=== PATIENT | male | born 1980 | race African-American/Black ===

== ENCOUNTER 2016-10-17 10:51 | Inpatient (IN) ==
[2016-10-17] MEDS ORDERED: NS 1,000 ML IV ONE (11:15)
[2016-10-17] MEDS ORDERED: ZOFRAN IV ONE ×2 (11:16→15:05)
[2016-10-17 11:34] LABS: MANUAL DIFF NEEDED? NO
[2016-10-17 11:38] LABS: BASO% 0.2 % (0.0-0.8); EOS# 0.06 X1000 (0.0-0.7); EOS% 0.4 % (0.0-10.0); HEMATOCRIT 43.1 % (42.0-52.0); HEMOGLOBIN 14.8 g/dL (14.0-18.0); IMM GRAN# 0.04 X1000 (0.0-0.04); IMM GRAN% 0.3 % (0.0-0.5); LYMPH# 1.55 X1000 (1.2-3.4); LYMPH% 11.2 % (20.5-51.1); MCHC 34.3 g/dL (33-37); MCV 78.6 FL (81-99); MONO# 0.62 X1000 (0.11-0.59); MONO% 4.5 % (1.7-9.3); MPV 10.6 FL (7.4-10.4); NEUT% 83.4 % (42.2-75.2); PLT 352 X1000 (130-400); RBC 5.48 XMIL (4.7-6.1)
[2016-10-17] MEDS ORDERED: DILAUDID IV ONE (11:41)
[2016-10-17 12:14] LABS: AGAP 20; ALBUMIN 4.3 g/dL (3.5-5.0); ALKALINE PHOSPHATASE 101 U/L (32-122); AMYLASE 99 U/L (20-200); BUN 15 mg/dL (8-22); CALCIUM 10.3 mg/dL (8.8-10.2); CHLORIDE 90 mmol/L (98-107); COSMO 296; GOT 11 U/L (10-34); GPT 10 U/L (10-44); POTASSIUM 4.1 mmol/L (3.5-5.1); SODIUM 135 mmol/L (136-145); TCO2 25 mmol/L (25-35); TOTAL BILIRUBIN 0.22 mg/dL (0.20-1.00); TOTAL PROTEIN 8.4 g/dL (6.3-8.3)
[2016-10-17] MEDS ORDERED: HUMULIN R IV ONE (12:30)
[2016-10-17] MEDS ORDERED: HUMULIN R SUBQ ONE (12:32)
[2016-10-17] MEDS ORDERED: NS 1,000 ML IV SCH (13:29)
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
[2016-10-17 13:51] LABS: URINE CULTURE NEEDED? NO; URINE MICRO REVIEW NEEDED? NO; URINE SOURCE CLEAN CATCH
[2016-10-17 13:56] LABS: BILIRUBIN URINE NEGATIVE (NEGATIVE); BLOOD URINE SMALL (NEGATIVE); COLOR STRAW; GLUCOSE URINE >1000 mg/dL (NEGATIVE); LEUKOCYTES URINE NEGATIVE (NEGATIVE); NITRITE URINE NEGATIVE (NEGATIVE); PH URINE 5.5; PROTEIN URINE 70 mg/dL (NEGATIVE); SP GRAVITY URINE 1.034; TURBIDITY URINE CLEAR (CLEAR); UR EPITHELIAL CELLS <10 /HPF (<10); URINE BACTERIA NEGATIVE /HPF; URINE RBC <10 /HPF (<10); URINE WBC <10 /HPF (<10); UROBILINOGEN URINE NORMAL (NORMAL)
[2016-10-17 14:15] LABS: UR AMPHETAMINES QUAL NONE DETECTED (NONE DETECT); UR BARBITUATES QUAL NONE DETECTED (NONE DETECT); UR BENZODIAZEPIN QUAL NONE DETECTED (NONE DETECT); UR CANNABINOIDS QUAL PRESUMPTIVE POSITIVE (NONE DETECT); UR COCAINE QUAL PRESUMPTIVE POSITIVE (NONE DETECT); UR METHADONE QUAL NONE DETECTED (NONE DETECT); UR OPIATES QUAL NONE DETECTED (NONE DETECT); UR OXYCODONE QUAL NONE DETECTED (NONE DETECT); UR PCP QUAL NONE DETECTED (NONE DETECT)
--- NOTE | 2016-10-17 14:29 | Diag Imaging Result Document ---
PROCEDURE NAME: CT ABD/PELVIS W/ IV CONT ONLY - 10/17/2016 CT ABDOMEN AND PELVIS WITH IV CONTRAST ONLY: Exam performed with intravenous contrast only per request of the referring provider. A dose reduction protocol was used. COMPARISON: Compared with the without contrast exam of 07/21/2016. FINDINGS: There has been interval appendectomy. The stomach is distended with fluid and air. There is dilatation of multiple small-bowel loops with fluid and air. The distal ileum is not distended. These findings are compatible with mid small bowel obstruction. There is questionable twisting of small bowel at the lower abdomen at the midline and to the left of midline which could relate to internal hernia or mild volvulus, but the mesenteric vascular structures are not obviously twisted. There is no abscess identified. There is no free intraperitoneal air identified. There is no bowel-containing external hernia identified. The urinary bladder is mildly distended. There is no substantial free fluid identified. There are no substantial abnormalities of the liver, spleen, adrenal glands, pancreas, or kidneys identified. There are no calcified gallstones seen. IMPRESSION: 1. Findings are consistent with mid small-bowel obstruction. Questionable twisting of some small bowel loops at the mid to lower abdomen and at the midline and to the left of midline. This could relate to internal hernia or mesenteric volvulus, although this is difficult to determine with certainty. 2. No abscess. No free air. Verbal results provided to Dr. Giles at 1:35 p.m. on 10/17/2016. [facility]
[2016-10-17 14:48] LABS: INR 0.95; PROTIME 9.9 Seconds (9.2-11.7)
[2016-10-17] MEDS ORDERED: APRESOLINE IV PRN (14:48)
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
[2016-10-17] MEDS: PROTONIX IV SCH (15:20)
[2016-10-17 15:40] LABS: HEMOGLOBIN A1C 13.3 % (4.8-6.0)
--- NOTE | 2016-10-17 15:53 | Diag Imaging Result Document ---
PROCEDURE NAME: CHEST/ABD TUBE PLACEMENT - 10/17/2016 CHEST/ABDOMEN SINGLE VIEW: FINDINGS: A nasogastric tube has been placed. The tip lies near the GE junction. It does not clearly enter the stomach. No free air beneath the diaphragm. IMPRESSION: Nasogastric tube is at the GE junction.
[2016-10-17] MEDS: HUMALOG SUBQ SCH ×2 (16:13→23:37)
--- NOTE | 2016-10-17 17:57 | Diag Imaging Result Document ---
PROCEDURE NAME: CHEST/ABD TUBE PLACEMENT - 10/17/2016 PORTABLE EXAM FOR NASOGASTRIC TUBE PLACEMENT: 1715 hours. The tip of the nasogastric tube is now at the expected location in the midstomach. IMPRESSION: Tip of nasogastric tube in midstomach. Verbal results provided to nurse, Trevor, at 5:29 p.m. on 10/17/2016.
[2016-10-17] MEDS: MORPHINE IV PRN ×2 (18:21→23:29)
[2016-10-17] MEDS: NS 1,000 ML IV SCH ×2 (18:23→21:14)
[2016-10-17] MEDS: NICODERM PATCH TD SCH (18:25)
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
[2016-10-17] MEDS: ZOFRAN IV PRN (21:14)
[2016-10-18] MEDS: ZOFRAN IV PRN ×2 (04:39→17:42)
[2016-10-18] MEDS: MORPHINE IV PRN ×4 (04:39→23:57)
[2016-10-18] MEDS: HUMALOG SUBQ SCH ×4 (06:00→20:58)
[2016-10-18 06:30] LABS: HEMATOCRIT 41.2 % (42.0-52.0); HEMOGLOBIN 14.1 g/dL (14.0-18.0); MCH 27.5 PG (27-31); MCHC 34.2 g/dL (33-37); MCV 80.3 FL (81-99); MPV 10.2 FL (7.4-10.4); RBC 5.13 XMIL (4.7-6.1)
[2016-10-18 06:57] LABS: CALCIUM 9.9 mg/dL (8.8-10.2); POTASSIUM 4.4 mmol/L (3.5-5.1)
[2016-10-18] MEDS: NS 1,000 ML IV SCH ×3 (08:08→17:46)
[2016-10-18] MEDS: NICODERM PATCH TD SCH (09:41)
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
--- NOTE | 2016-10-18 13:20 | ECHO REPORT ---
ORDER DATE: 10/18/2016 MEASUREMENTS: Left ventricular end-diastolic diameter 4.1, end-systolic diameter 3.3, posterior wall 1.4, septal thickness 1.4, left atrium 3.0, aortic root 4.4. SUMMARY: 1. Fair quality study. 2. Aortic valve is trileaflet and opens normally on 2-dimensional images. Mitral, tricuspid, and pulmonic valves are without structural abnormality, with trace mitral regurgitation, trace tricuspid regurgitation, and trace pulmonic insufficiency. The aortic root is mildly enlarged. 3. Normal left ventricular chamber size with [id number] concentric left ventricular hypertrophy is demonstrated. Estimated left ventricular ejection fraction is approximately 50%. No focal wall motion abnormalities are evident. Doppler suggests grade 1 left ventricular diastolic dysfunction. Left atrium, right atrium, and right ventricle are normal in size, with normal right ventricular systolic function. 4. No pericardial effusion. 5. Appearance of inferior vena cava suggests normal central venous pressure. CONCLUSIONS: 1. No significant valvular abnormalities. 2. [id number] concentric left ventricular hypertrophy with estimated left ventricular ejection fraction of 50%. 3. Grade 1 left ventricular diastolic dysfunction suggested. 4. Mild aortic root enlargement. cc: MD Dylan Gonsalez CRNP
[2016-10-18] MEDS: SODIUM CHLORIDE 0.9% INJ SCH (14:03)
[2016-10-18] MEDS: PROTONIX IV SCH (14:03)
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
[2016-10-19] MEDS: NS 1,000 ML IV SCH ×3 (02:31→16:51)
[2016-10-19 06:34] LABS: HEMATOCRIT 34.3 % (42.0-52.0); HEMOGLOBIN 11.6 g/dL (14.0-18.0); MCH 27.6 PG (27-31); MCHC 33.8 g/dL (33-37); MCV 81.5 FL (81-99); MPV 10.2 FL (7.4-10.4); RBC 4.21 XMIL (4.7-6.1)
[2016-10-19] MEDS: HUMALOG SUBQ SCH ×3 (06:50→16:50)
[2016-10-19] MEDS: MORPHINE IV PRN ×2 (06:50→10:09)
[2016-10-19 07:04] LABS: AGAP 11; BUN 17 mg/dL (8-22); CALCIUM 8.8 mg/dL (8.8-10.2); CHLORIDE 102 mmol/L (98-107); COSMO 289; POTASSIUM 4.1 mmol/L (3.5-5.1); SODIUM 139 mmol/L (136-145); TCO2 26 mmol/L (25-35)
--- NOTE | 2016-10-19 08:38 | PROGRESS NOTE ---
DATE: 10/19/2016 SUBJECTIVE: Continues to pass gas. No abdominal pain. No nausea, vomiting. OBJECTIVE: Vital Signs: Temperature is 98.1, pulse 95, blood pressure 142/86, oxygen saturation 100% on room air. General: He is alert, oriented. Cardiovascular: Normal rate, regular rhythm. Pulmonary: No increased work of breathing. Abdomen: Soft, nontender, nondistended. Integument: Otherwise warm and dry, with no lower extremity edema. LABS: White count of 8, hematocrit 34. Creatinine is down to 1.4. Glucose 271. ASSESSMENT AND PLAN: A 36-year-old male admitted with a bowel obstruction and hyperglycemia. His blood sugars are better. His creatinine bumped yesterday, but was downtrending today. He has had return of bowel function. Will advance his diet. He is tolerating clear liquids. Give him a soft diet today. If okay from a medical standpoint, okay for discharge home later today or tomorrow. We will defer to the hospitalist regarding his diabetes and his acute renal injury, which was most likely related to dehydration in the setting of hyperglycemia and protracted vomiting. cc: Laura Mcknight MD
[2016-10-19] MEDS ORDERED: LANTUS SUBQ SCH (09:00)
[2016-10-19] MEDS: NICODERM PATCH TD SCH (09:58)
[2016-10-19] MEDS: PROTONIX IV SCH (14:17)
[2016-10-19] MEDS: SODIUM CHLORIDE 0.9% INJ SCH (14:17)
--- NOTE | 2016-10-19 15:52 | PROGRESS NOTE ---
DATE: 10/19/2016 SUBJECTIVE: This patient states that he is feeling better. When I examined this patient, the patient did not have any bowel movement today. He is tolerating p.o. and apparently he is passing gas. His abdomen is soft, no pain and positive bowel sounds. OBJECTIVE: Vital Signs: Temperature 98.2 degrees, pulse 96, respiratory rate 18, blood pressure 152/80, O2 saturation 100% on room air. HEENT: Head normocephalic. No trauma. PERRLA. Neck: Supple. No JVD. No masses. Central trachea. Chest: Clear to auscultation. No wheezing. No rales. Abdomen: Soft, nontender, nondistended. No hepatosplenomegaly. Positive bowel sounds. Extremities: No edema. No clubbing. No cyanosis. Neurological Examination: The patient is alert and oriented x3. No focal neurological deficits. LABORATORY: WBC 8.7, hemoglobin 11.6, hematocrit 34.3. Sodium 139, potassium 4.1, chloride 102, bicarbonate 26, BUN 17, creatinine 1.4, glucose 271, calcium 8.8, magnesium 1.9. ASSESSMENT AND PLAN: 1. Small bowel obstruction. This condition is getting better. The patient is tolerating p.o. He is passing gas and yesterday he had a bowel movement that was watery. So far, no bowel movements today but the abdomen is soft with positive bowel sounds and no pain. 2. Uncontrolled diabetes. His hemoglobin A1c is 13.3, I do not think he is taking any medication at home. I will start this patient on insulin, and probably I will discharge this patient on insulin and metformin as well. 3. Dehydration likely secondary to hyperglycemia and fluids. Fluids removed from his NG tube. The creatinine came back to his baseline. We will continue to monitor. He does not look dehydrated today. 4. Acute kidney injury. Resolved. 5. History of asthma currently not in exacerbation. 6. Polysubstance abuse with medical noncompliance. Patient has been highly advised against drug abuse. He has a positive result for cocaine and cannabinoids in the urine. We will continue with daily cessation education. 7. Nicotine dependence. Again this patient has been highly advised to quit smoking. We will continue with nicotine patch and daily cessation education. 8. DVT prophylaxis provided by SCDs and EJ ellington. 9. Anemia. His hemoglobin dropped from 14.1 to 11.6. This could represent a mistake or true anemia. I will monitor this patient for 1 more day. 10. I will keep this patient for 1 more night. His hemoglobin dropped from 14 to 11.6, and also his blood sugar has been above 200. This patient will need upon discharge to be on insulin. I do not think this patient is taking his medications as prescribed. His hemoglobin A1c was 13.3. cc: Lucho Duggan MD
[2016-10-19 16:05] VITALS: BP 154/91
[2016-10-19] MEDS ORDERED: HUMULIN 70/30 SUBQ SCH (21:00)
[2016-10-20] MEDS ORDERED: HUMULIN 70/30 SUBQ SCH (09:00)
--- NOTE | 2016-10-20 11:39 | DISCHARGE SUMMARY ---
ADMISSION DATE: 10/17/2016 DISCHARGE DATE: 10/19/2016 THE PATIENT LEFT AMA ON 10/19/2016: CONSULTATIONS: Dr. Montana Mcknight. PERTINENT PROCEDURES: Abdomen and pelvis CT. FINDINGS: 1. Consistent with a mid small-bowel obstruction, questionable twisting of the small bowel loops at the mid to lower abdomen at the midline and to the left of midline. Could also relate to internal hernia or mesenteric volvulus. No abscess, no free air. 2. Echocardiogram showed [id number] concentric LVH with estimated EF of 50%. Grade 1 ventricular diastolic dysfunction. Mild aortic root enlargement. DISCHARGE DIAGNOSES: 1. Small bowel obstruction. The patient's condition was getting better. He was tolerating p.o. He had passed some gas and had a bowel movement that was watery. 2. Uncontrolled diabetes. Hemoglobin A1c was 13.3. The patient was started on insulin while in the hospital. 3. Acute kidney injury, resolved. 4. Dehydration secondary to hyperglycemia. 5. History of asthma non exacerbation. 6. Polysubstance abuse with medical noncompliance. 7. Nicotine dependence. Cessation was discussed daily. 8. Anemia stable. 9. Left against medical advice. HOSPITAL COURSE: Mr. Suarez is a 36-year-old male with a history of uncontrolled diabetes, medical noncompliance. Reported to the ED with acute onset of abdominal pain. It was fairly sharp in nature, all bilateral lower quadrant abdominal pain. One episode of emesis. He had a normal bowel movement on the day of his admission, but his belly had gotten fairly distended. He did report some shortness of breath and orthopnea and reports he has an enlarged heart. A CT of the abdomen and pelvis was ordered and found to be consistent with a bowel obstruction. Dr. Montana Mcknight with surgery had been consulted. His laboratory data was significant for hyperglycemia and mild renal insufficiency with leukocytosis. The patient was made NPO, started on IV fluids and antiemetics, as well as NG tube placement with serial abdominal x-rays. The patient was started on IV insulin and then switched to a sliding scale. Repeat echocardiogram showed an EF of 50% with LVH. The patient was monitored closely by general surgery. His blood sugars did improve. His creatinine did improve. His diet was advanced by surgery. He had been tolerating his liquids. The patient did have return of bowel function. However, patient did have a drop in his hemoglobin and hematocrit from 14-11 and his blood sugars were noted to have been above 200. Surgery was okay with the patient to be discharged home. However, we will need to monitor the patient one more night. The patient left AMA. Dictated by RASHID Keyes for Lucho Duggan MD cc: Lucho Duggan MD
== END 2016-10-19 18:34 | disposition left against medical advice (07) ==
LOC: ED 10:51 → 4N 16:14
PROVIDERS: ATTEND Internal Medicine

== ENCOUNTER 2016-10-23 23:20 | Inpatient (IN) ==
[2016-10-24] MEDS ORDERED: NS 1,000 ML IV SCH ×2 (01:51→05:58)
[2016-10-24 03:01] LABS: MANUAL DIFF NEEDED? NO
[2016-10-24 03:02] LABS: BASO% 0.3 % (0.0-0.8); EOS# 0.15 X1000 (0.0-0.7); EOS% 2.2 % (0.0-10.0); HEMATOCRIT 36.4 % (42.0-52.0); HEMOGLOBIN 12.9 g/dL (14.0-18.0); LYMPH# 1.58 X1000 (1.2-3.4); LYMPH% 22.7 % (20.5-51.1); MCH 27.8 PG (27-31); MCHC 35.4 g/dL (33-37); MCV 78.4 FL (81-99); MONO# 0.51 X1000 (0.11-0.59); MONO% 7.3 % (1.7-9.3); MPV 10.1 FL (7.4-10.4); NEUT% 67.5 % (42.2-75.2); PLT 324 X1000 (130-400); RBC 4.64 XMIL (4.7-6.1)
[2016-10-24 03:33] LABS: ALBUMIN 3.8 g/dL (3.5-5.0); CALCIUM 9.9 mg/dL (8.8-10.2); POTASSIUM 4.2 mmol/L (3.5-5.1); TOTAL BILIRUBIN 0.19 mg/dL (0.20-1.00); TOTAL PROTEIN 7.6 g/dL (6.3-8.3)
[2016-10-24] MEDS ORDERED: NS 1,000 ML IV ONE (03:48)
[2016-10-24] MEDS ORDERED: HUMULIN R IV ONE (03:50)
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
[2016-10-24 04:26] LABS: URINE SOURCE CLEAN CATCH
[2016-10-24 04:27] LABS: URINE MICRO REVIEW NEEDED? NO
[2016-10-24 04:28] LABS: BILIRUBIN URINE NEGATIVE (NEGATIVE); BLOOD URINE SMALL (NEGATIVE); COLOR STRAW; GLUCOSE URINE >1000 mg/dL (NEGATIVE); LEUKOCYTES URINE NEGATIVE (NEGATIVE); NITRITE URINE NEGATIVE (NEGATIVE); PH URINE 5.5; PROTEIN URINE 50 mg/dL (NEGATIVE); SP GRAVITY URINE 1.019; TURBIDITY URINE CLEAR (CLEAR); UROBILINOGEN URINE NORMAL (NORMAL)
[2016-10-24 04:29] LABS: UR EPITHELIAL CELLS <10 /HPF (<10); URINE BACTERIA NEGATIVE /HPF; URINE RBC <10 /HPF (<10); URINE WBC <10 /HPF (<10)
[2016-10-24 05:00] LABS: UR AMPHETAMINES QUAL NONE DETECTED (NONE DETECT); UR BARBITUATES QUAL NONE DETECTED (NONE DETECT); UR BENZODIAZEPIN QUAL NONE DETECTED (NONE DETECT); UR CANNABINOIDS QUAL PRESUMPTIVE POSITIVE (NONE DETECT); UR COCAINE QUAL NONE DETECTED (NONE DETECT); UR METHADONE QUAL NONE DETECTED (NONE DETECT); UR OPIATES QUAL NONE DETECTED (NONE DETECT); UR OXYCODONE QUAL NONE DETECTED (NONE DETECT); UR PCP QUAL NONE DETECTED (NONE DETECT)
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
[2016-10-24 05:58] LABS: RETIC% 0.71 % (0.8-2.1); RETIC-HE 31.7 PG (28.2-36.6)
[2016-10-24] MEDS ORDERED: TYLENOL PO PRN (05:58)
[2016-10-24] MEDS ORDERED: HUMALOG SUBQ SCH (05:58)
[2016-10-24] MEDS ORDERED: SODIUM CHLORIDE 0.9% INJ ONE (05:58)
[2016-10-24] MEDS ORDERED: PROTONIX IV ONE (05:58)
[2016-10-24] MEDS ORDERED: ZOFRAN IV PRN (05:58)
[2016-10-24] MEDS: LOVENOX SUBQ SCH (07:26)
[2016-10-24] MEDS: HUMALOG SUBQ SCH ×4 (07:35→22:21)
--- NOTE | 2016-10-24 08:11 | Diag Imaging Result Document ---
PROCEDURE NAME: FLAT/UPRIGHT ABD/1 VIEW CHEST - 10/24/2016 PLAIN RADIOGRAPH OF THE CHEST AND ABDOMEN, 4 VIEWS: COMPARISON: Abdominal radiograph dated 10/17/2016. FINDINGS: There are nonspecific bowel gas patterns. There is mild gaseous distention of the colon with a few air-fluid levels. There also appears to be a small amount of nonspecific patchy gas in the small bowel. There does appear to be somewhat less small bowel distention when compared to the previous study. There is no evidence of large-volume free abdominal gas. Lungs are clear and cardiac silhouette is unremarkable. IMPRESSION: Less small bowel distention as compared to the previous study. However, the colon is now mildly distended which was not present previously.
[2016-10-24] MEDS ORDERED: LANTUS SUBQ SCH (09:00)
--- NOTE | 2016-10-24 09:41 | Diag Imaging Result Document ---
PROCEDURE NAME: ABDOMEN/PELVIS W/O CONTRAST - 10/24/2016 CT ABDOMEN AND PELVIS WITH ORAL CONTRAST ONLY: COMPARISON: 10/17/2016. FINDINGS: There is nodularity in the peripheral lower lobe of the left lung that is stable and nonspecific, perhaps related to granulomatous disease. Please correlate clinically and follow up as necessary. The small-bowel obstruction seen on the previous study has essentially resolved. There is still patchy small-bowel gas and a few air-fluid levels. However, there is very little distention. There is patchy gas in the colon. It does not appear to be significantly distended. There is still some swirling of the mesenteric vessels similar to that which was seen on the previous study. Otherwise, the abdomen and pelvis are essentially stable as compared to the recent previous study. IMPRESSION: 1. Essential resolution of the small-bowel obstruction seen previously. 2. Although there is patchy colonic gas, there is no evidence of colonic obstruction. 3. Otherwise, the abdomen and pelvis are essentially stable as compared to the recent previous study.
[2016-10-24] MEDS: NS 1,000 ML IV SCH (16:27)
[2016-10-24] MEDS: MORPHINE IV PRN (22:29)
[2016-10-25] MEDS ORDERED: NICODERM PATCH TD SCH (00:30)
[2016-10-25] MEDS: HUMALOG SUBQ SCH ×2 (06:07→11:23)
[2016-10-25] MEDS: NS 1,000 ML IV SCH ×2 (06:08→11:33)
[2016-10-25 06:12] LABS: MANUAL DIFF NEEDED? NO
[2016-10-25 06:20] LABS: BASO% 0.5 % (0.0-0.8); HEMATOCRIT 33.7 % (42.0-52.0); HEMOGLOBIN 11.5 g/dL (14.0-18.0); LYMPH# 2.05 X1000 (1.2-3.4); LYMPH% 31.2 % (20.5-51.1); MCH 27.1 PG (27-31); MCHC 34.1 g/dL (33-37); MCV 79.5 FL (81-99); MONO# 0.45 X1000 (0.11-0.59); MONO% 6.8 % (1.7-9.3); MPV 9.8 FL (7.4-10.4); NEUT% 58.5 % (42.2-75.2); PLT 275 X1000 (130-400); RBC 4.24 XMIL (4.7-6.1)
[2016-10-25 06:30] LABS: AGAP 9; ALBUMIN 3.3 g/dL (3.5-5.0); ALKALINE PHOSPHATASE 73 U/L (32-122); BUN 13 mg/dL (8-22); CALCIUM 8.8 mg/dL (8.8-10.2); CHLORIDE 100 mmol/L (98-107); COSMO 284; GOT 10 U/L (10-34); GPT 10 U/L (10-44); POTASSIUM 4.1 mmol/L (3.5-5.1); SODIUM 137 mmol/L (136-145); TCO2 28 mmol/L (25-35); TOTAL BILIRUBIN 0.11 mg/dL (0.20-1.00); TOTAL PROTEIN 6.9 g/dL (6.3-8.3)
[2016-10-25 08:16] VITALS: BP 157/97
--- NOTE | 2016-10-25 08:39 | Diag Imaging Result Document ---
PROCEDURE NAME: ABDOMEN FLAT/UPRIGHT - 10/25/2016 FLAT AND UPRIGHT ABDOMEN, THREE VIEWS: FINDINGS: No free air beneath the diaphragm. There is contrast and stool throughout the colon. The bowel loops are not distended. No organomegaly. No abnormal calcifications. IMPRESSION: Constipation, but no definite small bowel obstruction.
[2016-10-25] MEDS: LOVENOX SUBQ SCH (09:16)
[2016-10-25] MEDS: MORPHINE IV PRN ×2 (09:17→13:36)
--- NOTE | 2016-10-26 08:44 | DISCHARGE SUMMARY ---
ADMISSION DATE: 10/24/2016 DISCHARGE DATE: 10/25/2016 CONSULTATIONS: None. PERTINENT PROCEDURES: 1. Abdominal x-ray showed less small bowel distension compared to previous study. However, the colon is mildly distended. 2. Abdomen and pelvis CT: Essential resolution of small bowel obstruction seen previously. Although there is patchy colonic gas, there is no evidence of colonic obstruction. Abdomen and pelvis are essentially stable compared to recent previous study. 3. Abdominal x-ray showed constipation but no definite small bowel obstruction. DISCHARGE DIAGNOSES: 1. Large bowel obstruction versus adynamic ileus ruled out. 2. Uncontrolled diabetes mellitus type 2. 3. Asthma. 4. Dehydration. HOSPITAL COURSE: Mr. Suarez is a 36-year-old male with a past medical history of poorly controlled diabetes type 2 with a hemoglobin A1c of 13.3, recently at our facility for a small bowel obstruction, signed out AMA prior to his discharge. He returned to the ED with a difficult time defecating for 3 days. He was given a blue tablet by a friend, presumably a laxative, to aid in his defecation, and he said about 30 minutes to an hour after taking this medicine he developed intense lower abdominal cramping pain and the desire to defecate. On going to the bathroom, he strained without any success and noticed his abdomen was a little distended. Shortly after, he vomited 4 times, no coffee-ground emesis, no hematemesis. Since the patient has been in the hospital, he defecated twice, large watery stools. In the ED, an x- ray showed distended colon and several air fluid levels were noted in the periphery of the film suggestive of a large bowel obstruction. White count was 6000. His hemoglobin and hematocrit were 12 and 36. Creatinine was 1.6. The blood glucose was 453. The patient had a followup abdomen and pelvis CT that showed essential resolution of the small bowel obstruction seen on previous studies. Although there was patchy colonic gas, there was no evidence of colonic obstruction. Otherwise, the abdomen and pelvis were essentially stable compared to recent previous studies. Followup KUB showed constipation but no definite bowel obstruction. Mr. Suarez is set for discharge today. He will need to follow up with a primary care physician in 7-10 days. The list has been provided to him. Vital signs at the time of his discharge: Temperature is 97.8, heart rate 86, respirations 20, blood pressure 157/97, O2 was 100% on room air. DISCHARGE DIET: Diabetic. DISCHARGE MEDICATIONS: As per Dr. Rooney, metformin 1000 mg p.o. b.i.d. FOLLOWUP: The patient can return to the ED for any worsening of symptoms. DISCHARGE TIME: Thirty five minutes. Dictated by RASHID Keyes for Son Ma MD cc: Son Ma MD MTDD
== END 2016-10-25 14:49 | disposition home or self-care (01) ==
LOC: ED 23:20 → SUATTDRO 10-24 04:37 → 3N 10-24 05:51
PROVIDERS: ATTEND Internal Medicine

== ENCOUNTER 2019-08-28 07:00 | Inpatient (IN) ==
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
--- NOTE | 2019-08-28 09:59 | Diag Imaging Result Doc PS360 ---
EXAM: FOOT COMPLETE RIGHT 08/28/2019 HISTORY: ?osteomyelitis, infection TECHNIQUE: Right foot three views COMMENT: There is no evidence of fracture or dislocation. No other definite bony abnormalities are present. IMPRESSION: No evidence of acute bony disease. Electronically signed by Maximilian White 08/28/2019 9:56 AM
[2019-08-28 10:05] LABS: BASO# 0.03 X1000 (0.0-0.2); BASO% 0.2 % (0.0-0.8); EOS# 0.14 X1000 (0.0-0.7); EOS% 1.1 % (0.0-10.0); HEMATOCRIT 25.8 % (42.0-52.0); HEMOGLOBIN 8.3 g/dL (14.0-18.0); IMM GRAN# 0.06 X1000 (0.0-0.04); IMM GRAN% 0.5 % (0.0-0.5); LYMPH# 1.13 X1000 (1.2-3.4); LYMPH% 8.7 % (20.5-51.1); MCH 25.8 PG (27-31); MCHC 32.2 g/dL (33-37); MCV 80.1 FL (81-99); MONO# 0.93 X1000 (0.11-0.59); MONO% 7.2 % (1.7-9.3); NEUT# 10.63 X1000 (1.4-6.5); NEUT% 82.3 % (42.2-75.2); PLT 610 X1000 (130-400); RBC 3.22 XMIL (4.7-6.1); RDW 12.5 % (11.5-14.5); WBC 12.92 X1000 (4.8-10.8)
[2019-08-28 10:42] LABS: CALCIUM 8.4 mg/dL (8.8-10.2); CREATININE 2.9 mg/dL (0.7-1.2); POTASSIUM 4.5 mmol/L (3.5-5.1)
[2019-08-28] MEDS ORDERED: ZOSYN 3.375 GM in NS 50 ML IV ONE (11:12)
[2019-08-28] MEDS ORDERED: ZYVOX 600 MG/D5W 600 MG/300 ML IVPB IV ONE (11:12)
[2019-08-28] MEDS ORDERED: NS 500 ML IV ONE (11:13)
[2019-08-28] MEDS: NS 1,000 ML IV SCH ×2 (11:15→17:54)
[2019-08-28 12:03] LABS: HEMOGLOBIN A1C 10.3 % (4.8-6.0)
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
[2019-08-28] MEDS ORDERED: APRESOLINE IV PRN (14:40)
[2019-08-28] MEDS ORDERED: PRINIVIL PO SCH (14:45)
[2019-08-28] MEDS ORDERED: NS 1,000 ML IV ONE (14:46)
[2019-08-28] MEDS ORDERED: LANTUS INSULIN SUBQ ONE (15:08)
--- NOTE | 2019-08-28 15:10 | SEPSIS: TISSUE PERFUSION ASSMT ---
Sepsis: Tissue Perfusion Assmt - Physical Exam Assessment Date: 08/28/19 Time Assessment Initialized: 15:00 Vital Signs: Last Vital Signs Temp 99 F 08/28/19 13:41 Pulse 99 H 08/28/19 13:41 Resp 14 08/28/19 13:41 BP 184/116 08/28/19 13:41 Pulse Ox 100 08/28/19 13:41 Height 6 ft Weight 92.986 kg Lung Sounds: lungs clear Heart Sounds: Regular Capillary Refill Time: Less Than 2 Seconds Peripheral Pulse Evaluation: radial (R): 2+, radial (L): 2+, dorsalis-pedis (R): 2+, dorsalis-pedis (L): 2+, posterior tibialis (R): 2+, posterior tibialis (L): 2+ Skin Exam: pink, turgor good - Alternative Fluid Bolus Bolus Option: Alternative Fluid Resuscitation Bolus for morbidly obese patients with a BMI >30, Refer to [facility] Body Weight Chart for Reference. Is patient's BMI >30?: No - Impression Impression: Tissue Perfusion Adequate (Patient is hypertensive. Additional IV fluid boluses have been avoided.)
[2019-08-28 15:15] LABS: IRON SATURATION 17 %; TIBC 134 ug/dL; TOTAL IRON 23 ug/dL (53-167); UNBOUND IRON 111 ug/dL (112-346)
[2019-08-28 15:36] LABS: FERRITIN 223 ng/mL (30-400)
--- NOTE | 2019-08-28 15:57 | Diag Imaging Result Doc PS360 ---
MRI LOWER EXT W/WO CON-RIGHT - 08/28/2019 INDICATION: Evaluate for right foot osteomyelitis TECHNIQUE: MRI right foot without and with intravenous contrast COMPARISON: X-rays from earlier today FINDINGS: There appears to be a small penetrating ulcer at the plantar surface of the forefoot, at the third metatarsal head. There is some bone marrow edema at the distal third and fourth metatarsals. There is also bone marrow contrast enhancement here. There is some overlying cellulitis. No fluid collections or apparent foreign body. IMPRESSION: Osteomyelitis of the distal third and fourth metatarsals, mainly the metatarsal heads. Electronically signed by Harry Crowley 08/28/2019 3:55 PM
[2019-08-28] MEDS: HEPARIN SUBQ SCH ×2 (16:24→21:42)
[2019-08-28] MEDS: HUMALOG SUBQ SCH ×2 (16:37→21:43)
[2019-08-28] MEDS ORDERED: NOVOLOG MIX 70/30 SUBQ SCH ×2 (17:00→21:00)
[2019-08-28] MEDS ORDERED: ZOSYN 3.375 GM in NS 50 ML IV SCH (17:00)
[2019-08-28] MEDS: TYLENOL PO PRN (17:49)
[2019-08-28] MEDS: ZOSYN 2.25 GM in NS 50 ML IV SCH (17:49)
--- NOTE | 2019-08-28 18:25 | HISTORY AND PHYSICAL ---
Addendum to history and physical dictated by the nurse practitioner. I agree with most comments of history and physical, assessment and plan. In brief, Mr. Suarez is a 39-year-old man with history of type 1 insulin-dependent diabetes mellitus, asthma, tobacco abuse, and substance abuse in the past, who comes in with excruciating pain in the right foot along with drainage. In the emergency room, he was found to have sepsis with tachycardia and leukocytosis. He was resuscitated with intravenous fluids, intravenous antibiotics, and hospitalist team was consulted for further management. SUBJECTIVE: At the time of my evaluation, Mr. Suarez states he has not had any money to buy insulin or see general surgeon as an outpatient. OBJECTIVE: Temperature of 99 degrees, pulse 99, respiratory 14, and blood pressure 180/116. He is saturating 100% on room air.General: He is not in acute distress. Oral cavity is moist. Lungs: Air entry bilaterally equal. No wheeze, rhonchi, or crackles. Cardiovascular: S1, S2 normal. No murmur or gallop. Abdomen: Soft. Midline scar of previous laparotomy. Active bowel sounds. Extremities: He does not have lower extremity edema. On the right lower extremity examination, there is a linear wound on the plantar aspect of the right foot. There is also about 2 cm diameter wound which is dried and has a slight foul odor to it, and has mucopurulent discharge in the plantar aspect and excruciatingly tender. LABORATORY: Labs are suggestive of WBC of 12.9, hemoglobin 8.3, platelets 610,000, BUN 26, and creatinine 2.9. Wound culture and blood culture have been collected. IMAGING: Foot x-ray was unremarkable. Lower extremity MRI had suggested osteomyelitis of distal 3rd and 4th metatarsal in the head. IMPRESSION AND PLAN: 1. Severe sepsis due to right foot acute osteomyelitis affecting distal 3rd and 4th metatarsal. 2. Acute kidney injury on possibly chronic kidney disease stage 3 in the setting of sepsis. 3. Uncontrolled insulin-dependent diabetes mellitus type 1. 4. Essential hypertension. 5. Active tobacco abuse. 6.Microcytic anemia, likely anemia of chronic kidney disease, and anemia of chronic inflammation. PLAN: 1. I will give patient additional intravenous fluids. We will start him on intravenous Zosyn and linezolid. I will follow up with blood culture and wound culture results. Follow up with close input and output as well as electrolytes. We will consult general surgical team for evaluation for surgical debridement of osteomyelitis. 3. I will continue him on insulin, and start him on basal bolus regimen. 4. Continue heparin for DVT prophylaxis. 5. Start him on IV hydralazine for hypertension. 6. Smoking counselling would be provided. DISPOSITION: Continue to monitor patient on telemetry unit. Plan of care discussed with the patient. His questions have been satisfactorily answered. cc: Fletcher Abdul MD MTDD
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
[2019-08-28 20:36] LABS: URINE SOURCE CLEAN CATCH
[2019-08-28 20:45] LABS: BILIRUBIN URINE NEGATIVE (NEGATIVE); BLOOD URINE MODERATE (NEGATIVE); COLOR YELLOW; GLUCOSE URINE 100 mg/dL (NEGATIVE); KETONE URINE NEGATIVE (NEGATIVE); LEUKOCYTES URINE NEGATIVE (NEGATIVE); NITRITE URINE NEGATIVE (NEGATIVE); PROTEIN URINE 300 mg/dL (NEGATIVE); SP GRAVITY URINE 1.013; TURBIDITY URINE CLEAR (CLEAR); UROBILINOGEN URINE NORMAL (NORMAL)
[2019-08-28 20:46] LABS: UR EPITHELIAL CELLS <10 /HPF (<10); URINE BACTERIA NEGATIVE /HPF; URINE RBC TNTC /HPF (<10); URINE WBC <10 /HPF (<10)
[2019-08-28] MEDS: ZYVOX 600 MG/D5W 600 MG/300 ML IVPB IV SCH (21:42)
[2019-08-29] MEDS: ZOSYN 2.25 GM in NS 50 ML IV SCH ×4 (00:24→17:12)
[2019-08-29] MEDS: NS 1,000 ML IV SCH ×2 (00:24→17:22)
[2019-08-29] MEDS: TYLENOL PO PRN (00:24)
[2019-08-29] MEDS: HEPARIN SUBQ SCH ×4 (02:55→23:42)
[2019-08-29] MEDS: ZYVOX 600 MG/D5W 600 MG/300 ML IVPB IV SCH ×3 (02:56→23:42)
[2019-08-29] MEDS ORDERED: FENTANYL ONE (05:59)
[2019-08-29] MEDS ORDERED: VERSED ONE (05:59)
[2019-08-29] MEDS ORDERED: DIPRIVAN 1% ONE (06:00)
[2019-08-29] MEDS: HUMALOG SUBQ SCH ×4 (06:46→21:34)
[2019-08-29 07:50] LABS: BASO# 0.02 X1000 (0.0-0.2); BASO% 0.2 % (0.0-0.8); EOS# 0.12 X1000 (0.0-0.7); HEMATOCRIT 24.1 % (42.0-52.0); HEMOGLOBIN 7.8 g/dL (14.0-18.0); IMM GRAN# 0.03 X1000 (0.0-0.04); IMM GRAN% 0.2 % (0.0-0.5); LYMPH# 1.81 X1000 (1.2-3.4); LYMPH% 14.4 % (20.5-51.1); MCH 25.8 PG (27-31); MCHC 32.4 g/dL (33-37); MCV 79.8 FL (81-99); MONO# 1.28 X1000 (0.11-0.59); MONO% 10.2 % (1.7-9.3); MPV 8.9 FL (7.4-10.4); NEUT# 9.33 X1000 (1.4-6.5); PLT 668 X1000 (130-400); RBC 3.02 XMIL (4.7-6.1); RDW 12.4 % (11.5-14.5); WBC 12.59 X1000 (4.8-10.8)
[2019-08-29] MEDS ORDERED: MORPHINE IV PRN (07:51)
[2019-08-29 08:16] LABS: CALCIUM 8.4 mg/dL (8.8-10.2); CREATININE 2.4 mg/dL (0.7-1.2); POTASSIUM 3.9 mmol/L (3.5-5.1)
[2019-08-29] MEDS ORDERED: NAROPIN 0.2% ONE (08:58)
[2019-08-29] MEDS ORDERED: LANTUS INSULIN SUBQ SCH (09:00)
--- NOTE | 2019-08-29 09:28 | Diag Imaging Result Doc PS360 ---
Right foot one view - 08/29/2019 INDICATION: MISS COUNT IN SURGERY TECHNIQUE: COMPARISON: 08/28/2019 FINDINGS: There is no radiodense foreign body. IMPRESSION: No complication. Electronically signed by Harry Crowley 08/29/2019 9:26 AM
--- NOTE | 2019-08-29 11:42 | OPERATIVE NOTE ---
PROCEDURE DATE: 08/29/2019 POSTOPERATIVE DIAGNOSES: 1. Right diabetic foot infection. 2. Osteomyelitis of the 3rd and 4th metatarsals on the right. 3. Diabetes. POSTOPERATIVE DIAGNOSES: 1. Right diabetic foot infection. 2. Osteomyelitis of the 3rd and 4th metatarsals on the right. 3. Diabetes. PROCEDURE: Transmetatarsal amputation of the right 4th toe. ESTIMATED BLOOD LOSS: Less than 10 mL. SPECIMENS: Right 4th toe. ANESTHESIA: General. INDICATION: A 39-year-old gentleman who has poorly controlled diabetes medical noncompliance due to social issues. He also is a smoker and suspect he has some subclinical peripheral vascular disease. He came in with early ischemic changes, purulence from his foot and leukocytosis and pain. MRI showed osteomyelitis changes of the metatarsal heads of the 3rd and 4th digit. OPERATIVE NOTE: Risks, benefits and alternatives were discussed with patient. He consented to the procedure. We also discussed the possibility of subsequent amputations, need for further intervention. He understands all this and consented. Surgical site was marked. He was taken to the operating room and placed in supine position. General anesthesia induced. The foot was prepped with Betadine and draped in the usual fashion. After a time-out, an elliptical incision was made including the plantar ulcer which overlies the 4th metatarsal head and carried this down through the joint space, removing the toe. Periosteum elevators used to resect the periosteum back on the metatarsal and a bone cutter was used. There was purulence in the joint and there was moth-eaten changes to the distal bone. There was very minimal bleeding noted. I did not appreciate any purulence tracking medially or laterally. We confirmed hemostasis. We lavaged the cavity with lavage and a lavage dressing was applied. The sponge counts were short 1 sponge, which was subsequently found in the hallway outside of the room, but an x-ray was obtained that showed no retained surgical instruments or sponges. There was no family available. We will keep him on antibiotics over the weekend, obtain noninvasive vascular studies and plan for possible CTA. Unfortunately, I expected he will progress to transmetatarsal amputation with possible revascularization required, but will see how he does with wound care and antibiotics. cc: Laura Mcknight MD
--- NOTE | 2019-08-29 16:42 | PROGRESS NOTE ---
DATE: 08/29/2019 INTERVAL HISTORY: Mr. Suarez underwent transmetatarsal amputation of right 4th toe. I am seeing him postoperatively. SUBJECTIVE: He is complaining of pain at the surgery site. He denies any chest pain or shortness of breath. He denies any nausea or vomiting. I briefly discussed with him about the surgical note that the surgeon doctor had written. We also talked about starting him on intravenous pain medication as well as diabetes control, and resolution of acute kidney injury. He understood it. VITALS: Temperature of 98.7 degrees, pulse 110, respiratory 18, blood pressure 130/70, saturating 99% on room air. PHYSICAL EXAMINATION: General: Not in acute distress. Oral cavity is moist. Lungs: Air entry bilaterally equal. No wheeze or crackles. Cardiovascular: S1, S2 normal. No murmur or gallop. Abdomen: Soft, nontender. Extremities: No lower extremity edema. His right lower extremity is in bandage. Right now he is able to wiggle his 1st two toes that I can see. [place] [address], hemoglobin 7.8, platelet 668,000. His BUN improved to 21, creatinine is down to 2.4. His blood sugar is 108. His ferritin is 223, had a saturation of 78% suggestive of anemia of chronic disease. Culture results are still pending. ASSESSMENT AND PLAN: 1. Severe sepsis due to right foot acute osteomyelitis affecting the 3rd and 4th metatarsals, status post transmetatarsal amputation of 4th toe. Continue intravenous fluids, intravenous linezolid and intravenous Zosyn. Follow up final culture and sensitivity report. Surgical team on board and further angiographic imaging is planned for next week. I will keep him on intravenous morphine for pain control and add oral acetaminophen oxycodone. 2. Acute kidney injury, probably on chronic kidney disease stage 3 in the setting of sepsis, now improving. Continue intravenous fluids. 3. Uncontrolled insulin-dependent diabetes mellitus type 1. Continue sliding scale insulin and adjust the dose according to his response. 4. Essential hypertension. Continue intravenous hydralazine as needed and I will add oral medications once he becomes clinically stable. 5. He was counseled about active tobacco abuse and he has microcytic anemia, likely anemia of chronic inflammation. DISPOSITION: I will continue to monitor patient inside the hospital. Plan of care discussed with him. His questions have been answered. cc: Fletcher Abdul MD
[2019-08-29] MEDS: TYLENOL PO SCH (17:11)
[2019-08-29] MEDS: OXY IR PO SCH ×2 (17:11→21:33)
[2019-08-29] MEDS: PERIDEX MT SCH (21:33)
[2019-08-30] MEDS: ZOSYN 2.25 GM in NS 50 ML IV SCH ×5 (01:39→22:38)
[2019-08-30] MEDS: TYLENOL PO SCH ×4 (01:39→23:55)
[2019-08-30] MEDS: MORPHINE IV PRN ×2 (01:39→20:49)
[2019-08-30] MEDS: OXY IR PO SCH ×4 (04:10→22:49)
[2019-08-30] MEDS: HUMALOG SUBQ SCH ×4 (06:34→22:37)
[2019-08-30] MEDS: HEPARIN SUBQ SCH ×3 (06:34→22:29)
[2019-08-30 07:05] LABS: BASO# 0.02 X1000 (0.0-0.2); BASO% 0.2 % (0.0-0.8); EOS% 0.9 % (0.0-10.0); HEMATOCRIT 24.8 % (42.0-52.0); IMM GRAN# 0.02 X1000 (0.0-0.04); IMM GRAN% 0.2 % (0.0-0.5); LYMPH# 1.26 X1000 (1.2-3.4); LYMPH% 11.7 % (20.5-51.1); MCH 25.9 PG (27-31); MCHC 32.3 g/dL (33-37); MCV 80.3 FL (81-99); MONO# 1.02 X1000 (0.11-0.59); MONO% 9.5 % (1.7-9.3); MPV 8.9 FL (7.4-10.4); NEUT# 8.34 X1000 (1.4-6.5); NEUT% 77.5 % (42.2-75.2); PLT 620 X1000 (130-400); RBC 3.09 XMIL (4.7-6.1); RDW 12.3 % (11.5-14.5); WBC 10.76 X1000 (4.8-10.8)
[2019-08-30 07:17] LABS: CALCIUM 8.3 mg/dL (8.8-10.2); CREATININE 2.7 mg/dL (0.7-1.2); MAGNESIUM 1.7 mg/dL (1.5-2.7); POTASSIUM 3.9 mmol/L (3.5-5.1)
[2019-08-30] MEDS: PERIDEX MT SCH ×2 (11:41→20:49)
--- NOTE | 2019-08-30 12:03 | GENERAL SURGERY PROGRESS NOTE ---
DATE: 08/30/2019 SUBJECTIVE: His foot hurts. Objective: Vital Signs: He is afebrile. Vital signs are stable. General: He is awake, alert, oriented, no acute distress. Extremities: The right foot bandage is intact. No bleeding through. LABORATORY: White cell count 10, hemoglobin 8, hematocrit 24.9, platelet count 620. Electrolytes reviewed and unremarkable. ASSESSMENT AND PLAN: A 39-year-old male status post right fourth toe amputation. He has a diabetic foot infection and osteomyelitis. Lower extremity arterial studies are pending. Continue local wound care and antibiotics. cc: Tevin Morris MD
[2019-08-30] MEDS: ZYVOX 600 MG/D5W 600 MG/300 ML IVPB IV SCH ×2 (13:16→22:29)
[2019-08-30] MEDS: NS 1,000 ML IV SCH ×2 (13:16→16:55)
--- NOTE | 2019-08-30 15:00 | PROGRESS NOTE ---
DATE: 08/30/2019 INTERVAL HISTORY: No acute events overnight. SUBJECTIVE: Mr. Suarez is complaining of foot pain. He denies any chest pain or shortness of breath. We discussed about his kidney dysfunction as well as possible diabetic nephropathy. I answered all of his questions. VITALS: Temperature 98.9 degrees, pulse 91, respiratory rate 20, blood pressure 155/83, saturating 96% on room air. PHYSICAL EXAMINATION: Not in acute distress. HEENT: Oral cavity is moist. Lungs: Air entry bilateral. No wheeze or crackles. Cardiovascular: No murmur or gallop. Abdomen: Soft, nontender. Scar of previous laparotomy. Extremities: No lower extremity edema. He has right lower extremity in bandage. He is able to wiggle his toes. Intact pulses on left lower extremity. Neurologic: He is alert and oriented x3. [place]S: [place] [address], hemoglobin 8, platelet of 620,000. His BUN is 21, creatinine 2.7. His blood glucose is 137. His magnesium is 1.7. No positive microbiological data. No new imaging. ASSESSMENT AND PLAN: 1. Severe sepsis due to right foot acute osteomyelitis affecting 3rd and 4th metatarsals, status post transmetatarsal amputation of 4th toe. Today is postoperative day 1. Continue intravenous linezolid and intravenous Zosyn. Continue oral acetaminophen, oxycodone and intravenous morphine for pain control. I will continue heparin for DVT prophylaxis. 2. Acute kidney injury, probably chronic kidney disease stage 3 in the setting of sepsis and could also be a component of postoperative acute kidney injury. I will continue intravenous fluids. Follow up kidney function closely. 3. Uncontrolled insulin-dependent diabetes mellitus type 2. Continue sliding scale insulin and diabetic diet. 4. Essential hypertension. Continue intravenous hydralazine as needed. Once his kidney function stabilizes, I will consider starting him on JOSEPHINE inhibitors considering proteinuria and history of diabetes. 5. Active tobacco abuse. He was counseled about smoking cessation; continue to monitor hemoglobin for anemia of chronic inflammation. DISPOSITION: Continue to monitor patient inside the hospital. General surgical team is planning further imaging early next week. Plan of care discussed with the patient and his questions have been answered. cc: Fletcher Abdul MD
[2019-08-30] MEDS: APRESOLINE IV SCH ×2 (16:55→22:29)
[2019-08-31] MEDS: HEPARIN SUBQ SCH ×3 (06:03→23:05)
[2019-08-31] MEDS: NS 1,000 ML IV SCH ×2 (06:03→19:44)
[2019-08-31] MEDS: ZOSYN 2.25 GM in NS 50 ML IV SCH ×5 (06:03→23:06)
[2019-08-31] MEDS: APRESOLINE IV SCH (06:03)
[2019-08-31] MEDS: OXY IR PO SCH ×4 (06:06→23:05)
[2019-08-31] MEDS: HUMALOG SUBQ SCH ×3 (06:12→23:05)
[2019-08-31] MEDS ORDERED: APRESOLINE IV PRN (07:55)
[2019-08-31] MEDS: ZOFRAN IV PRN (09:17)
[2019-08-31] MEDS: PERIDEX MT SCH ×2 (09:19→20:45)
[2019-08-31] MEDS: TYLENOL PO SCH ×3 (09:19→23:05)
[2019-08-31] MEDS: APRESOLINE PO SCH ×3 (09:20→20:44)
[2019-08-31] MEDS: MIRALAX PO SCH ×2 (09:22→20:45)
[2019-08-31] MEDS: ZYVOX 600 MG/D5W 600 MG/300 ML IVPB IV SCH ×2 (11:27→23:06)
[2019-08-31 12:09] LABS: CALCIUM 8.4 mg/dL (8.8-10.2); CREATININE 2.5 mg/dL (0.7-1.2); POTASSIUM 4.1 mmol/L (3.5-5.1)
--- NOTE | 2019-08-31 12:21 | PROGRESS NOTE ---
DATE: 08/31/2019 INTERVAL HISTORY: No acute events overnight. SUBJECTIVE: Mr. Suarez is complaining of foot pain. I discussed with him about ambulation, physical activity. We discussed about further wound management as per the surgeon doctor tomorrow. I answered all of his questions. We discussed about following up with repeat BMP. OBJECTIVE: Vital Signs: Temperature 98.7 degrees, pulse 96, respiratory rate 20, blood pressure 163/97, saturating 100% on room air. General: Mr. Suarez is not in any acute distress. HEENT: Oral cavity is moist. Lungs: Air entry bilaterally equal. No wheeze, rhonchi, crackles. Cardiovascular: S1, S2 normal. No murmur or gallop. Abdomen: Soft, nontender. Extremities: No lower extremity edema. Right foot is in a bandage. He is able to wiggle his toes. He says he was able to go to the bathroom using a walker. LABORATORY DATA: BMP is pending. Blood glucoses have been within acceptable range, and it is 140 at the moment. MICROBIOLOGY: No positive data. IMAGING: No new imaging. ASSESSMENT AND PLAN: 1. Severe sepsis due to right foot acute osteomyelitis affecting third and fourth metatarsals, status post transmetatarsal amputation of fourth toe. Today is postoperative day 2. Continue intravenous linezolid and intravenous Zosyn. Culture data have been unremarkable. Continue oral acetaminophen, oxycodone, and as needed morphine for pain control. I will start him on bisacodyl and MiraLAX for constipation, and continue heparin for deep venous thrombosis prophylaxis. General surgical team is planning vascular studies on him before determining further management. 2. Acute kidney injury on chronic kidney disease stage 3 in the setting of sepsis, and probably acute tubular necrosis in the setting of surgery. I will follow up repeat BMP. Based on that, I will decide intravenous fluid management. Currently, he is on normal saline at 75. 3. Uncontrolled diabetes mellitus type 2. Continue sliding scale insulin and diabetic diet. Considering cost issues, I may just decide to keep him on metformin at the time of discharge. 4. Essential hypertension. Start the patient on oral hydralazine and intravenous hydralazine as needed. He may eventually benefit from angiotensin-converting enzyme inhibitors in the future. 5. Constipation: Start Miralax and Bisacody suppository. 5. Active tobacco abuse. He was counseled about smoking cessation. 6. Microcytic anemia of chronic inflammation, currently stable. I will follow up with CBC tomorrow. 7. Disposition. Monitor the patient on the floor. Plan of care discussed with him. His questions have been answered. cc: Fletcher Abdul MD MTDD
[2019-08-31] MEDS: DULCOLAX PR SCH ×2 (14:27→20:45)
[2019-08-31] MEDS: MORPHINE IV PRN (18:01)
[2019-09-01] MEDS: OXY IR PO SCH ×4 (05:11→22:58)
[2019-09-01] MEDS: ZOSYN 2.25 GM in NS 50 ML IV SCH ×4 (05:11→22:58)
[2019-09-01] MEDS: APRESOLINE PO SCH ×3 (05:17→22:58)
[2019-09-01] MEDS: HEPARIN SUBQ SCH ×3 (06:26→22:58)
[2019-09-01] MEDS: HUMALOG SUBQ SCH ×4 (06:44→23:09)
[2019-09-01 07:43] LABS: BASO# 0.02 X1000 (0.0-0.2); BASO% 0.3 % (0.0-0.8); EOS# 0.16 X1000 (0.0-0.7); EOS% 2.2 % (0.0-10.0); HEMOGLOBIN 7.9 g/dL (14.0-18.0); LYMPH# 1.28 X1000 (1.2-3.4); LYMPH% 17.2 % (20.5-51.1); MCH 25.6 PG (27-31); MCHC 31.6 g/dL (33-37); MCV 81.2 FL (81-99); MONO# 0.74 X1000 (0.11-0.59); MPV 8.7 FL (7.4-10.4); NEUT# 5.23 X1000 (1.4-6.5); NEUT% 70.3 % (42.2-75.2); PLT 608 X1000 (130-400); RBC 3.08 XMIL (4.7-6.1); RDW 12.6 % (11.5-14.5); WBC 7.43 X1000 (4.8-10.8)
[2019-09-01 07:55] LABS: CALCIUM 8.6 mg/dL (8.8-10.2); CREATININE 2.9 mg/dL (0.7-1.2); POTASSIUM 4.2 mmol/L (3.5-5.1)
[2019-09-01] MEDS: TYLENOL PO SCH ×3 (08:52→23:00)
[2019-09-01] MEDS: DULCOLAX PR SCH ×2 (08:52→23:11)
[2019-09-01] MEDS: PERIDEX MT SCH ×2 (08:52→22:59)
[2019-09-01] MEDS: MIRALAX PO SCH ×2 (08:52→23:10)
[2019-09-01] MEDS: NS 1,000 ML IV SCH (08:55)
[2019-09-01] MEDS: ZYVOX 600 MG/D5W 600 MG/300 ML IVPB IV SCH ×2 (12:17→23:39)
[2019-09-01] MEDS: MORPHINE IV PRN (15:05)
--- NOTE | 2019-09-01 16:53 | GENERAL SURGERY PROGRESS NOTE ---
DATE: 09/01/2019 SUBJECTIVE: Doing okay. Some pain in his foot. No fevers. No tachycardia. PHYSICAL EXAMINATION: Vital Signs: Blood pressure 143/83. General: He is alert. Extremities: His right foot wound is clean and dry. There is no purulence. No cellulitis. The remaining toes remain viable. LABORATORY: White count 7, hematocrit stable at 25. Creatinine is 2.9, glucose has been in the 100s to 200s. ASSESSMENT/PLAN: A 39-year-old gentleman status post right fourth toe amputation. He had minimal bleeding. I have reviewed his LEAs. He does have ABIs greater than 1 bilaterally with some depression of the toe waveforms. Suspect this is small-vessel disease. We will continue local wound care and observation. We will hold off any further CT angiogram, as his creatinine remains elevated at 2.9. I think he is high risk of progression to a transmetatarsal amputation or even below-knee amputation ultimately, but we will continue local wound care as I do feel we have adequate source control for his infection. Cultures are not having any growth at this juncture. cc: Laura Mcknight MD
--- NOTE | 2019-09-01 18:46 | PROGRESS NOTE ---
DATE: 09/01/2019 INTERVAL HISTORY: No acute events overnight. SUBJECTIVE: Mr. Suarez denies any new complaints. We discussed about his acute kidney injury. We discussed about diabetes. I answered all of his questions. VITAL SIGNS: Temperature 97.9 degrees, pulse 83, respiratory rate 20, blood pressure 140/80. He is saturating 97% room air. PHYSICAL EXAMINATION: General: Mr. Suarez is not in acute distress. HEENT: Oral cavity is moist. Lungs: Air entry bilaterally equal. No wheeze, rhonchi, or crackles. Cardiovascular: S1, S2 normal. No murmur, rub, or gallop. Abdomen: Soft, nontender. Extremities: No lower extremity edema. His right foot is in a bandage. He is able to wiggle his toes. Neurologic: He is alert and oriented x3. LABS: Suggestive of hemoglobin of 7.9, platelets 608,000. Creatinine of 2.9, blood sugar 212. MICROBIOLOGY: No new data. IMAGING: No new imaging. ASSESSMENT AND PLAN: 1. Severe sepsis due to right foot acute osteomyelitis affecting 3rd and 4th metatarsals, status post transmetatarsal amputation of 4th toe. Today is postoperative day 3. Continue oral acetaminophen, oxycodone, as needed morphine for pain control. Continue bisacodyl and MiraLAX for constipation and heparin for DVT prophylaxis. Continue intravenous Zosyn and linezolid for osteomyelitis. Appreciate surgical recommendations. 2. Acute kidney injury on chronic kidney disease stage 3 in the setting of sepsis and probably acute tubular necrosis. I will keep him on IV fluids and follow up with BMP tomorrow. I will also get renal ultrasound to rule out any obstructive uropathy. This could just be progression of his chronic kidney disease to stage 4. 3. Uncontrolled diabetes mellitus type 2, probably leading to chronic kidney disease. Also hypertensive nephropathy is a possibility, which is contributing to his chronic kidney disease. 4. Diabetes mellitus type 2, insulin dependent. Continue sliding scale insulin and add glargine. 5. Essential hypertension. Continue current dose of hydralazine and intravenous hydralazine as needed. Once his kidney function stabilizes, I would consider adding JOSEPHINE inhibitors or ARB. 6. Others. His microcytic anemia of chronic inflammation is currently stable. I counseled him about smoking cessation. His constipation has resolved. DISPOSITION: General Surgical team is currently planning close wound care before deciding on further surgical plan, which may include transmetatarsal amputation of this foot versus below-knee amputation. cc: Fletcher Abdul MD
[2019-09-01] MEDS: LANTUS INSULIN SUBQ SCH (22:59)
[2019-09-02] MEDS: MORPHINE IV PRN ×3 (01:55→13:27)
[2019-09-02] MEDS: ZOSYN 2.25 GM in NS 50 ML IV SCH ×3 (06:58→21:05)
[2019-09-02] MEDS: OXY IR PO SCH ×3 (06:58→18:09)
[2019-09-02] MEDS: HEPARIN SUBQ SCH ×3 (06:58→23:58)
[2019-09-02] MEDS: APRESOLINE PO SCH ×3 (06:59→21:05)
[2019-09-02 07:23] LABS: CALCIUM 8.5 mg/dL (8.8-10.2); CREATININE 2.7 mg/dL (0.7-1.2); POTASSIUM 4.4 mmol/L (3.5-5.1)
[2019-09-02 08:25] LABS: URINE SOURCE CLEAN CATCH
[2019-09-02] MEDS: TYLENOL PO SCH ×2 (08:28→15:47)
[2019-09-02 08:29] LABS: BILIRUBIN URINE NEGATIVE (NEGATIVE); BLOOD URINE SMALL (NEGATIVE); COLOR YELLOW; GLUCOSE URINE 300 mg/dL (NEGATIVE); KETONE URINE NEGATIVE (NEGATIVE); LEUKOCYTES URINE NEGATIVE (NEGATIVE); NITRITE URINE NEGATIVE (NEGATIVE); PH URINE 6.5; PROTEIN URINE 600 mg/dL (NEGATIVE); SP GRAVITY URINE 1.015; TURBIDITY URINE CLEAR (CLEAR); UROBILINOGEN URINE NORMAL (NORMAL)
[2019-09-02] MEDS: DULCOLAX PR SCH (08:29)
[2019-09-02] MEDS: PERIDEX MT SCH ×2 (08:29→21:05)
[2019-09-02] MEDS: MIRALAX PO SCH (08:29)
[2019-09-02 08:31] LABS: UR EPITHELIAL CELLS <10 /HPF (<10); URINE BACTERIA NEGATIVE /HPF; URINE RBC TNTC /HPF (<10); URINE WBC <10 /HPF (<10)
[2019-09-02] MEDS: NS 1,000 ML IV SCH ×2 (08:41→15:47)
[2019-09-02] MEDS: HUMALOG SUBQ SCH ×3 (08:45→15:47)
[2019-09-02 10:50] LABS: UR CREAT RANDOM 75.5 mg/dL (14-26); UR PROT RANDOM > 600.0 mg/dL; UR SODIUM 75 mmoll
[2019-09-02] MEDS: ZYVOX 600 MG/D5W 600 MG/300 ML IVPB IV SCH ×2 (13:27→23:58)
--- NOTE | 2019-09-02 13:41 | Diag Imaging Result Doc PS360 ---
US RENAL 2 (RETROPER) COMPLETE - 09/01/2019 INDICATION: michael/arf TECHNIQUE: COMPARISON: 01/02/2019 FINDINGS: The kidneys and urinary bladder are normal. The right kidney measures 11.8 x 6.4 x 5.2 cm. The left kidney measures 13.1 x 6.1 x 6.2 cm. Urinary bladder volume is 68 mL. The fluid is clear. IMPRESSION: Negative exam. Electronically signed by Harry Crowley 09/02/2019 1:39 PM
--- NOTE | 2019-09-02 16:53 | PROGRESS NOTE ---
DATE: 09/01/201 SUBJECTIVE: Today Mr. Suarez refers to be doing okay. No new complaints. He said he has a feeling that he is going to go through a transmetatarsal amputation. He is waiting on the surgeon to evaluate the foot today. OBJECTIVE: Vital signs: Blood pressure is 146/87, pulse of 95, respirations 18, temperature 97.9 degrees. General: Mr. Suarez is a 39-year-old gentleman. He is in bed, no distress. HEENT: Mucosa is pink and moist. Anicteric. Acyanotic. Neck: Supple. Chest: Clear to auscultation. No crepitations. No rhonchi. Cardiovascular: Regular rate and rhythm GI. Abdomen: Soft, nontender. Bowel sounds present. Extremities: No pedal edema. The right foot has a Band-Aid. There is a wound in between the 3rd and the 5th digit which the base looks slightly sloughy but is not exuding. HAND MOLDER: Patient is awake, alert, and oriented. LABORATORY DATA: None for today. ASSESSMENT: 1. Severe sepsis on presentation secondary to right diabetic foot, complicated with acute osteomyelitis of the 3rd and the 4th metatarsal. The patient is status post transmetatarsal amputation of the 4th toe. Today is day 4 postop. He continues to follow up with wound care and surgery. 2. Acute on chronic renal failure. 3. Uncontrolled diabetes mellitus with presenting A1c of 10.3, complicated with peripheral diabetic neuropathy and diabetic nephropathy. 4. Hypertension. 5. Microcytic anemia of chronic disease. In general, we are going to continue addressing all the comorbidities of Mr. Suarez, including the diabetes, hypertension. He is also on antimicrobials. Will be waiting on surgery to evaluate the foot tomorrow and get further recommendations. cc: Dieudonne Yañez MD
--- NOTE | 2019-09-02 17:21 | VASCULAR LAB ---
PROCEDURE NAME: Arterial Bilateral Legs - 08/29/2019 REFERRING PHYSICIAN: Dr. [place] Mcknight. READING PHYSICIAN: Tevin Morris MD LEVEL DESIGNER: Beck. INDICATION: Ischemic right foot. FINDINGS: The pulse volume waveforms appear to be normal at all levels from the thigh to the ankle bilaterally; however, the waveform is normal in the left digit but blunted in the right digit. Segmental pressures: Right brachial 183, high thigh 218, low thigh 229, popliteal 227, dorsalis pedis 189, posterior tibial 225, toe pressure 66, DOUGLAS 1.2, TBI 0.36. Left brachial pressure 175, high thigh 227, low thigh 225, popliteal 220, dorsalis pedis 195, posterior tibial 206, toe pressure 124, DOUGLAS 1.1, TBI 0.68. INTERPRETATION: There appears to be normal flow to the ankle level bilaterally, but there is likely small vessel disease in the right foot. The adequacy for healing a toe amputation is at least questionable. cc: MD Laura Freitas MD
--- NOTE | 2019-09-02 18:53 | GENERAL SURGERY PROGRESS NOTE ---
DATE: 09/02/2019 SUBJECTIVE: Feels okay. Some pain in his foot. No fevers. No tachycardia. OBJECTIVE: vital signs: Blood pressure this morning was 138/78. General: He is alert. Extremities: His right foot seems well perfused. There is no purulence. No cellulitis. The remaining toes remain viable. LABORATORIES: His creatinine is 2.7 down from 2.9. Glucose still remains in the low 200s. ASSESSMENT AND PLAN: A 39-year-old gentleman with diabetic toe infection of the right foot. We resected this. Base of the wound seems clean. He seems to have normal ankle brachial indexes, but depressed toe brachial indices bilaterally. I suspect he does have quite severe small vessel disease. We will continue local wound care and follow him along. cc: Laura Mcknight MD MTDD
[2019-09-02] MEDS: LANTUS INSULIN SUBQ SCH (21:06)
[2019-09-03] MEDS: TYLENOL PO SCH ×3 (00:09→16:26)
[2019-09-03] MEDS: OXY IR PO SCH ×4 (00:09→17:50)
[2019-09-03] MEDS: DULCOLAX PR SCH ×2 (06:15→09:56)
[2019-09-03] MEDS: HUMALOG SUBQ SCH ×4 (06:15→16:25)
[2019-09-03] MEDS: MIRALAX PO SCH ×2 (06:15→09:55)
[2019-09-03] MEDS: NS 1,000 ML IV SCH (06:16)
[2019-09-03] MEDS: ZOSYN 2.25 GM in NS 50 ML IV SCH ×3 (06:18→21:38)
[2019-09-03] MEDS: APRESOLINE PO SCH ×3 (06:19→21:39)
[2019-09-03 07:18] LABS: CALCIUM 8.5 mg/dL (8.8-10.2); CREATININE 2.5 mg/dL (0.7-1.2); POTASSIUM 3.9 mmol/L (3.5-5.1)
[2019-09-03 07:22] LABS: BASO# 0.02 X1000 (0.0-0.2); BASO% 0.2 % (0.0-0.8); EOS# 0.14 X1000 (0.0-0.7); EOS% 1.6 % (0.0-10.0); HEMATOCRIT 19.5 % (42.0-52.0); HEMOGLOBIN 6.2 g/dL (14.0-18.0); IMM GRAN# 0.02 X1000 (0.0-0.04); IMM GRAN% 0.2 % (0.0-0.5); LYMPH# 1.59 X1000 (1.2-3.4); LYMPH% 17.6 % (20.5-51.1); MCH 26.1 PG (27-31); MCHC 31.8 g/dL (33-37); MCV 81.9 FL (81-99); MONO# 0.56 X1000 (0.11-0.59); MONO% 6.2 % (1.7-9.3); MPV 8.2 FL (7.4-10.4); NEUT# 6.68 X1000 (1.4-6.5); NEUT% 74.2 % (42.2-75.2); PLT 673 X1000 (130-400); RBC 2.38 XMIL (4.7-6.1); RDW 12.7 % (11.5-14.5); WBC 9.01 X1000 (4.8-10.8)
[2019-09-03] MEDS ORDERED: NS 500 ML IV ONE (08:23)
[2019-09-03 09:43] LABS: RETIC% 0.74 % (0.8-2.1)
[2019-09-03 09:49] LABS: IRON SATURATION 36 %; TIBC 131 ug/dL; TOTAL IRON 47 ug/dL (53-167); UNBOUND IRON 84 ug/dL (112-346)
[2019-09-03] MEDS: PERIDEX MT SCH ×2 (09:55→21:39)
[2019-09-03] MEDS: HEPARIN SUBQ SCH (09:55)
[2019-09-03 10:34] LABS: FERRITIN 302 ng/mL (30-400)
[2019-09-03] MEDS: ZYVOX 600 MG/D5W 600 MG/300 ML IVPB IV SCH (11:46)
[2019-09-03] MEDS ORDERED: COZAAR PO ONE (16:13)
[2019-09-03] MEDS: MORPHINE IV PRN ×2 (16:26→21:38)
--- NOTE | 2019-09-03 16:37 | PROGRESS NOTE ---
DATE: 09/03/2019 SUBJECTIVE: This morning Mr. Suarez refers to be doing well, denies any new complaints except some pains to the right lower extremity. OBJECTIVE: Vital signs: Blood pressure is 154/93, pulse of 98, respiration is 18, temperature is 98.5 degrees. General: On general exam, Mr. Suarez is a 39-year-old, -[place] gentleman. He is in bed, in no distress. HEENT: Mucosa is slightly pale. Anicteric. Acyanotic. Neck: Supple. Chest: Clear to auscultation. No crepitations. No rhonchi. No accessory muscle use. Cardiovascular: Regular rate and rhythm. No murmurs, no rubs, no gallops. GI: Abdomen was soft, nontender. There is an old midline surgical scar. Extremities: No pedal edema. The right lower extremity is wrapped in sterile dressing. The patient shows physical signs of peripheral vascular disease. PROCUREMENT ENGINEER: Patient is awake, alert, and oriented. No focal deficit. LABORATORY DATA: WBC is 9.01, hemoglobin is down to 6.2. Chemistry is also reviewed, creatinine of 2.5. Folate and iron studies are within normal range. ASSESSMENT: 1. Severe sepsis on presentation secondary to right diabetic foot infection complicated with acute osteomyelitis of the 3rd and 4th metatarsal bones. The patient is status post transmetatarsal amputation of the 4th toe. Today is day 5 postop. We will continue with IV antibiotics and local wound care and follow up with Surgery's recommendations. 2. Acute on chronic renal failure. Creatinine continues to be trending down. 3. Uncontrolled diabetes mellitus with presenting A1c of 10.3. We will continue with insulin regimen. 4. Longstanding complications of diabetes including diabetic peripheral neuropathy and diabetic nephropathy. 5. Nephrotic range proteinuria. I will start Mr. Suarez on low-dose losartan. 6. Hypertension. Patient is on hydralazine. We will add losartan and carvedilol. 7. Microcytic anemia of chronic disease. Hemoglobin has dropped to 6.2. Patient is on group and crossmatch for 2 units of packed red blood cells. 8. Severe peripheral vascular disease, worse on the right than the left, with a toe-brachial index of 0.36. We will start the patient on statin and aspirin. cc: Dieudonne Yañez MD
[2019-09-03] MEDS: COREG PO SCH (21:39)
[2019-09-03] MEDS: LIPITOR PO SCH (21:39)
[2019-09-04] MEDS: ZYVOX 600 MG/D5W 600 MG/300 ML IVPB IV SCH ×2 (00:18→11:27)
[2019-09-04] MEDS: OXY IR PO SCH ×6 (00:19→23:51)
[2019-09-04] MEDS: TYLENOL PO SCH ×4 (00:19→23:52)
[2019-09-04] MEDS: DULCOLAX PR SCH ×3 (04:04→21:46)
[2019-09-04] MEDS: LANTUS INSULIN SUBQ SCH (04:04)
[2019-09-04] MEDS: HUMALOG SUBQ SCH ×5 (04:04→21:36)
[2019-09-04] MEDS: MIRALAX PO SCH ×3 (04:05→21:46)
[2019-09-04] MEDS: ZOSYN 2.25 GM in NS 50 ML IV SCH ×4 (04:35→21:46)
[2019-09-04] MEDS: APRESOLINE PO SCH ×3 (06:22→21:45)
[2019-09-04] MEDS: ZOFRAN IV PRN (06:27)
[2019-09-04 07:03] LABS: HEMOGLOBIN 10.4 g/dL (14.0-18.0); MCH 27.1 PG (27-31); MCHC 33.5 g/dL (33-37); MCV 80.7 FL (81-99); MPV 8.3 FL (7.4-10.4); RBC 3.84 XMIL (4.7-6.1); RDW 13.3 % (11.5-14.5); WBC 9.67 X1000 (4.8-10.8)
[2019-09-04 07:30] LABS: ALBUMIN 1.9 g/dL (3.5-5.0); CALCIUM 8.3 mg/dL (8.8-10.2); CREATININE 2.5 mg/dL (0.7-1.2); PHOSPHORUS 3.8 mg/dL (2.7-4.5); POTASSIUM 3.8 mmol/L (3.5-5.1)
[2019-09-04] MEDS: PERIDEX MT SCH ×2 (09:08→21:46)
[2019-09-04] MEDS: COREG PO SCH ×2 (09:09→21:46)
[2019-09-04] MEDS: HEPARIN SUBQ SCH ×2 (09:09→21:45)
[2019-09-04] MEDS: COZAAR PO SCH (09:09)
--- NOTE | 2019-09-04 14:37 | PROGRESS NOTE ---
DATE: 09/04/2019 SUBJECTIVE: I have seen and examined Mr. Suarez this morning. Mr. Suarez refers to be doing well. Early on, he said he had vomited and he felt very loopy but he is feeling a lot better now. OBJECTIVE: Vital Signs: Blood pressure is 149/91, pulse of 92, respirations are 20, temperature is 98.0 degrees. General Examination: Mr. Suarez is a 39-year-old, gentleman. He is in bed. No distress. HEENT: Mucosa is pink and moist. Anicteric. Acyanotic. Neck: Supple. Chest: Clear to auscultation. No crepitations. No rhonchi. Cardiovascular: Regular rate and rhythm. No murmurs, no rubs, no gallops. GI: Abdomen is soft, nontender. There is an old midline surgical scar. Extremities: No pedal edema. The right lower extremity has a surgical wrap. The nurse unwrapped it for me to look at the wound. He has the fourth digit surgically removed. Part of the metatarsal bone on the third is still exposed. The base of the wound does not look very healthy. There is mild necrotic tissue on the medial side of the fifth toe. There is also mild discoloration of the distal foot itself. FRUIT AND VEGETABLE PACKER: The patient is awake, alert, and oriented. Laboratory Data: WBC is 9.67, hemoglobin is 10.4, platelet count of 539,000. Chemistry is also reviewed. Creatinine is 2.5, which has been like that for the past couple of days. So far, blood cultures and the foot cultures have all been negative. ASSESSMENT: 1. Severe sepsis on presentation secondary to right diabetic foot infection complicated with acute osteomyelitis of the third and the fourth metatarsal bones. The patient is status post transmetatarsal amputation of the fourth toe. Today is day 5. We will continue with intravenous antibiotics. So far, cultures have been negative. The wound still has some slough in it and the third metatarsal bone seems to be exposed. I think Mr. Suarez will eventually need further surgical intervention. We will wait for surgery to evaluate him today. 2. Acute on chronic renal failure. Creatinine is stable. 3. Uncontrolled diabetes mellitus with presenting A1c of 10.3. Patient is on insulin regimen. Glucose is better controlled. 4. Longstanding complications of diabetes mellitus including diabetic peripheral neuropathy, diabetic nephropathy. 5. Nephrotic range proteinuria. Patient is on ARB therapy. 6. Hypertension, controlled. 7. Microcytic anemia of chronic disease. Patient is status post 2 units of packed red blood cell transfusion. Hemoglobin and hematocrit have improved. 8. Severe peripheral vascular disease, worse on the right than the left, with TBI of 0.36 on the right. The patient is currently on statin and aspirin. PLAN: In general, I think Mr. Suarez is fairly stable. We are going to continue with the current management to control all his comorbidities. We will continue with the IV antibiotics and we will wait on surgery to re-evaluate the wound and give further recommendations. cc: Dieudonne Yañez MD
--- NOTE | 2019-09-04 15:26 | GENERAL SURGERY PROGRESS NOTE ---
DATE: 09/04/2019 SUBJECTIVE: No fevers. Dressing changes are going well. OBJECTIVE: Vital Signs: Heart rate in the low 100s. Blood pressure 149/91. General: He is alert. Right Foot: The remaining toes were well perfused. I do not identify any cellulitis. No necrosis. His dressing is clean. LABORATORY DATA: White count is 9, hematocrit is 31, creatinine is 2.5. This is stable from his baseline. Glucoses are better. ASSESSMENT AND PLAN: A 39-year-old gentleman status post amputation right 4th toe. He does have osteomyelitis and will need long-term antibiotics for this. Otherwise, he seems to have adequate flow to his foot, but does have small vessel disease. We will continue to follow along. cc: Laura Mcknight MD
[2019-09-04] MEDS: MORPHINE IV PRN (16:07)
[2019-09-04] MEDS: LIPITOR PO SCH (21:45)
[2019-09-04] MEDS: DOXYCYCLINE PO SCH (21:46)
[2019-09-05] MEDS: LANTUS INSULIN SUBQ SCH ×2 (01:22→20:27)
[2019-09-05] MEDS: ZOSYN 2.25 GM in NS 50 ML IV SCH ×5 (04:01→23:14)
[2019-09-05] MEDS: OXY IR PO SCH ×3 (06:17→18:10)
[2019-09-05] MEDS: APRESOLINE PO SCH ×3 (06:17→20:22)
[2019-09-05] MEDS: HUMALOG SUBQ SCH ×4 (06:23→20:37)
[2019-09-05] MEDS: TYLENOL PO SCH ×2 (08:39→16:03)
[2019-09-05] MEDS: DULCOLAX PR SCH ×2 (10:39→20:23)
[2019-09-05] MEDS: MORPHINE IV PRN (11:03)
[2019-09-05] MEDS: PERIDEX MT SCH ×2 (11:05→20:27)
[2019-09-05] MEDS: MIRALAX PO SCH ×2 (11:05→20:24)
[2019-09-05] MEDS: HEPARIN SUBQ SCH ×2 (11:05→20:27)
[2019-09-05] MEDS: DOXYCYCLINE PO SCH ×2 (11:06→20:22)
[2019-09-05] MEDS: COREG PO SCH ×2 (11:06→20:22)
[2019-09-05] MEDS: COZAAR PO SCH (11:06)
--- NOTE | 2019-09-05 14:16 | PROGRESS NOTE ---
DATE: 09/05/2019 SUBJECTIVE: Today Mr. Suarez refers to be doing well. He actually denied any new complaints. He was inquiring to know when surgery will take another look and decide if he would go for amputation. I told him I have discussed with Dr. Mcknight and the plan is to get him a Garnica catheter, treat him six weeks with IV antibiotics and re-evaluate at the end of the treatment. OBJECTIVELY: Vital Signs: Current blood pressure is 175/95, pulse of 95, respirations 18, temperature is 98.6 degrees. Patient was saturating 99% on room air. General: Mr. Suarez is a 39-year-old gentleman. He was in bed, no distress. HEENT: Mucosa was pink and moist. Anicteric. Acyanotic. Neck: Supple. There was no JVD. Respiratory System: Good air entry bilaterally. There were no crepitations, no rhonchi. No accessory muscle use. Cardiovascular: Regular rate and rhythm. No murmurs, no rubs, no gallops. Gastrointestinal: Abdomen was soft. There is an old midline surgical scar. Extremities: No pedal edema. Some chronic changes due to peripheral vascular disease is noted. The right lower extremity has a Band- Aid on the foot. Central Nervous System: Patient was awake, alert, and oriented. LABORATORY DATA: None for today. Patient glucose was 138. So far, the cultures have came back negative. MEDICATIONS: Have all been reviewed. No changes. I have discontinued the Zyvox and changed him to oral doxycycline for MRSA coverage. The patient continues to be on Zosyn. ASSESSMENT: 1. Severe sepsis on presentation secondary to right diabetic foot infection complicated with acute osteomyelitis of the third and the fourth metatarsal bone. Patient is status post transmetatarsal amputation of the fourth right toe. Today is day 5. I have discussed with Dr. Mcknight and the consensus is to give him six weeks of intravenous antibiotics. He is going to get a Garnica catheter because he has stage 4 kidney disease which precludes PICC line placement. Once the Garnica is placed, we will arrange for home antibiotics. 2. Acute on chronic renal failure. Creatinine is stable. 3. Uncontrolled diabetes mellitus on presentation. A1c of 10.3. Patient is on insulin regimen. Glucose is better controlled. 4. Longstanding complication of diabetes mellitus including diabetic peripheral neuropathy and diabetic nephropathy noted. 5. Nephrotic range proteinuria. Patient is on angiotensin receptor freddy therapy. 6. Hypertension. We will continue to titrate his medications. 7. Microcytic anemia of chronic disease. 8. Severe peripheral vascular disease, worse on the right than the left. The patient has a toe brachial index of 0.36 on the right. He is currently on statin and aspirin. PLAN: In general, I think Mr. Suarez remains stable. We will continue with the insulin regimen and we are going to titrate on his blood pressure medicines. Will be pending surgery to evaluate him and decide when a Garnica can be placed. I have started discussion with the high school social science teacher for possible arrangement for home antimicrobial therapy. cc: Dieudonne Yañez MD
--- NOTE | 2019-09-05 18:14 | GENERAL SURGERY PROGRESS NOTE ---
DATE: 09/05/2019 SUBJECTIVE: Feels okay. No fevers. No tachycardia. OBJECTIVE: His right foot dressing is clean and recently changed. LABORATORIES: I reviewed his labs. His white count yesterday was normal. Glucose 124 this morning. ASSESSMENT AND PLAN: This is a 39-year-old gentleman with diabetic foot infection of the right 4th toe with osteomyelitis of the adjacent 3rd metatarsal although this toe was viable with no gross purulence. Continue local wound care. This is going well. He will need long-term IV antibiotics. I have talked to Dr. Yañez about this. Given his renal dysfunction, he needs a Garnica catheter. Unfortunately, with our current OR restrictions, we will plan on placing this early next week to promote outpatient antibiotics. We will continue local wound care. cc: Laura Mcknight MD
[2019-09-05] MEDS: LIPITOR PO SCH (20:22)
[2019-09-06] MEDS: OXY IR PO SCH ×5 (00:28→23:42)
[2019-09-06] MEDS: ZOSYN 2.25 GM in NS 50 ML IV SCH ×4 (03:39→20:47)
[2019-09-06] MEDS: TYLENOL PO SCH ×4 (03:40→23:42)
[2019-09-06] MEDS: APRESOLINE PO SCH ×3 (05:30→20:47)
[2019-09-06] MEDS: HUMALOG SUBQ SCH ×4 (06:21→20:46)
[2019-09-06] MEDS: HEPARIN SUBQ SCH ×2 (09:27→20:46)
[2019-09-06] MEDS: COREG PO SCH ×2 (09:28→20:48)
[2019-09-06] MEDS: COZAAR PO SCH (09:28)
[2019-09-06] MEDS: DOXYCYCLINE PO SCH ×2 (09:28→20:47)
[2019-09-06] MEDS: PERIDEX MT SCH ×2 (10:27→20:48)
[2019-09-06] MEDS: MIRALAX PO SCH ×2 (11:27→20:48)
[2019-09-06] MEDS: DULCOLAX PR SCH ×2 (11:28→20:47)
[2019-09-06] MEDS: MORPHINE IV PRN (11:29)
--- NOTE | 2019-09-06 16:46 | PROGRESS NOTE ---
DATE: 09/06/2019 SUBJECTIVE: I have seen and examined Mr. Suarez today. Mr. Suarez refers to be doing well. No new complaints. OBJECTIVE: Vital Signs: Stable. Blood pressure 137/92, pulse of 95, respirations 16, temperature 98.8 degrees. General: Mr. Suarez is a 39-year-old gentleman. He is in bed, no distress. HEENT: Mucosa is pink and moist. Anicteric. Acyanotic. Neck: Supple. Chest: Clear to auscultation. No crepitations. No rhonchi. Cardiovascular: Regular rate and rhythm. GI: Abdomen was soft, nontender. There is an old midline surgical scar. Extremities: No pedal edema. Chronic changes due to peripheral vascular disease. The right lower extremity is an sterile wrap. LEGAL ARCHIVIST: Patient is awake, alert, and oriented. LABORATORY DATA: None for today. Glucose of 230. ASSESSMENT: 1. Severe sepsis on presentation secondary to right diabetic foot infection complicated with acute osteomyelitis of the 3rd and 4th metatarsal bone. The patient is status post transmetatarsal amputation of the 4th digit on the right. Today is day 6. He is going to continue with IV antibiotics for a total of 6 weeks. 2. Acute on chronic renal failure. Creatinine is stable. 3. Uncontrolled diabetes mellitus with presenting A1c of 10.3. Patient is on insulin regimen. 4. Long-standing diabetic complications including diabetic peripheral neuropathy, diabetic nephropathy, nephrotic range proteinuria. 5. Hypertension. 6. Microcytic anemia of chronic disease. 7. Severe peripheral vascular disease with TBI on the right, 0.36. The patient continues to be on aspirin and statin. His general plan is to continue with the current antibiotics. Await for Garnica catheter placement and hopefully discharge Mr. Suarez on home antibiotics. cc: Dieudonne Yañez MD
--- NOTE | 2019-09-06 17:22 | GENERAL SURGERY PROGRESS NOTE ---
DATE: 09/06/2019 SUBJECTIVE: Doing okay. No fevers. No tachycardia. His right foot wound is clean. There is some eschar around the edges. Remaining toes remain perfused. There is no gross purulence. Glucose 230 this morning. ASSESSMENT AND PLAN: A 39-year-old gentleman status post right 4th toe amputation. We will keep dressing. Continue dressing changes and antibiotics. Plan for Garnica on Sunday based off of OR availability. Facilitate outpatient antibiotics. I have discussed with the patient. cc: Laura Mcknight MD MTDD
[2019-09-06] MEDS: LANTUS INSULIN SUBQ SCH (20:47)
[2019-09-06] MEDS: LIPITOR PO SCH (20:48)
[2019-09-07] MEDS: ZOSYN 2.25 GM in NS 50 ML IV SCH ×6 (02:29→22:02)
[2019-09-07] MEDS: MORPHINE IV PRN ×2 (03:13→08:52)
[2019-09-07] MEDS: APRESOLINE PO SCH ×3 (05:51→22:07)
[2019-09-07] MEDS: OXY IR PO SCH ×3 (05:51→18:16)
[2019-09-07] MEDS: HUMALOG SUBQ SCH ×4 (06:40→22:04)
[2019-09-07] MEDS: MIRALAX PO SCH ×2 (08:52→22:04)
[2019-09-07] MEDS: COREG PO SCH ×2 (08:52→22:03)
[2019-09-07] MEDS: PERIDEX MT SCH ×2 (08:52→22:03)
[2019-09-07] MEDS: TYLENOL PO SCH ×2 (08:53→16:01)
[2019-09-07] MEDS: COZAAR PO SCH ×2 (08:53→22:05)
[2019-09-07] MEDS: DOXYCYCLINE PO SCH ×2 (08:53→22:05)
[2019-09-07] MEDS: HEPARIN SUBQ SCH ×2 (08:53→22:05)
[2019-09-07] MEDS: DULCOLAX PR SCH ×2 (10:33→22:05)
--- NOTE | 2019-09-07 11:53 | PROGRESS NOTE ---
DATE: 09/07/2019 SUBJECTIVE: I have seen and examined Mr. Suarez today. Mr. Suarez refers to be doing a whole lot better. Denies any new complaints. He said that surgery has already evaluated him today. OBJECTIVE: Vital Signs: Blood pressure is 160/95, pulse of 93, respirations are 16, temperature is 98.0 degrees. General Examination: Mr. Suarez is a 39-year-old, -Martiniquais gentleman. He is in bed. No distress. HEENT: Mucosa is pink and moist. Anicteric. Acyanotic. Neck: Supple. Chest: Clear to auscultation. There were no crepitations. No rhonchi. Cardiovascular: Regular rate and rhythm. GI: Abdomen is soft, nontender. There is an old midline surgical scar noted. Extremities: No pedal edema. There are chronic changes due to peripheral vascular disease. Right lower extremity is in a sterile dressing. COMB TENDER: The patient is awake, alert, and oriented. There is no focal deficit. Laboratory Data: None for this morning. Glucose is 180. The patient is currently on doxycycline and Zosyn. ASSESSMENT: 1. Severe sepsis on presentation secondary to a right diabetic foot infection complicated with acute osteomyelitis of the third and the fourth metatarsal bones. Patient is status post transmetatarsal amputation of the fourth digit on the right. Today is day 7. He is going to be on intravenous antibiotics for a total of 6 weeks. Arrangements will be done tomorrow, once Mr. Suarez get a Garnica catheter. 2. Acute on chronic renal failure. Creatinine is stable. 3. Uncontrolled diabetes mellitus with presenting A1c of 10.3. The patient has long-standing complications of the diabetes including diabetic peripheral neuropathy, diabetic nephropathy, and nephrotic range proteinuria. He is on medications. 4. Uncontrolled hypertension. We will continue to up-titrate his medications. 5. Microcytic anemia of chronic disease. 6. Severe peripheral vascular disease with TBI on the right of 0.36. The patient is on aspirin and statin. cc: Dieudonne Yañez MD
--- NOTE | 2019-09-07 12:34 | GENERAL SURGERY PROGRESS NOTE ---
DATE: 09/07/2019 SUBJECTIVE: Doing well. No pain in his foot. No fevers. No tachycardia. Dressing changes are going well. OBJECTIVE: Blood pressure 160/95. His right toes are well-perfused. No cellulitis extending up his leg. I reviewed his labs. Glucose is 105 this morning. ASSESSMENT AND PLAN: A 39-year-old gentleman who is status post right toe amputation. We will continue local wound care. Plan for a Garnica on Sunday, based on operating room availability, and local wound care. cc: Laura Mcknight MD
[2019-09-07] MEDS: LANTUS INSULIN SUBQ SCH (22:04)
[2019-09-07] MEDS: LIPITOR PO SCH (22:04)
[2019-09-08] MEDS: OXY IR PO SCH ×4 (02:39→20:52)
[2019-09-08] MEDS: TYLENOL PO SCH ×4 (02:39→23:04)
[2019-09-08] MEDS: ZOSYN 2.25 GM in NS 50 ML IV SCH ×4 (03:51→20:58)
[2019-09-08] MEDS: APRESOLINE PO SCH ×4 (05:40→23:04)
[2019-09-08] MEDS: HUMALOG SUBQ SCH ×4 (06:48→20:56)
[2019-09-08 07:05] LABS: HEMATOCRIT 35.2 % (42.0-52.0); HEMOGLOBIN 11.5 g/dL (14.0-18.0); MCH 26.7 PG (27-31); MCHC 32.7 g/dL (33-37); MCV 81.9 FL (81-99); MPV 8.8 FL (7.4-10.4); RBC 4.3 XMIL (4.7-6.1); RDW 13.6 % (11.5-14.5); WBC 9.73 X1000 (4.8-10.8)
[2019-09-08 07:33] LABS: ALBUMIN 2.2 g/dL (3.5-5.0); CALCIUM 8.6 mg/dL (8.8-10.2); CREATININE 2.5 mg/dL (0.7-1.2); PHOSPHORUS 3.8 mg/dL (2.7-4.5); POTASSIUM 4.5 mmol/L (3.5-5.1)
[2019-09-08] MEDS: HEPARIN SUBQ SCH ×2 (11:12→20:51)
[2019-09-08] MEDS: DOXYCYCLINE PO SCH ×2 (11:13→20:52)
[2019-09-08] MEDS: COREG PO SCH ×2 (11:13→20:52)
[2019-09-08] MEDS: COZAAR PO SCH ×2 (11:13→20:52)
[2019-09-08] MEDS: DULCOLAX PR SCH ×2 (11:14→20:56)
[2019-09-08] MEDS: PERIDEX MT SCH ×2 (11:14→20:51)
[2019-09-08] MEDS: MIRALAX PO SCH ×2 (11:14→20:56)
--- NOTE | 2019-09-08 14:19 | GENERAL SURGERY PROGRESS NOTE ---
DATE: 09/08/2019 SUBJECTIVE: He is resting comfortably. OBJECTIVE: No fevers. Low-grade tachycardia. Blood pressure 176/99. ASSESSMENT AND PLAN: A 39-year-old gentleman with osteomyelitis of the right foot. He is status post debridement and amputation of the toe. He will need IV antibiotics. I have discussed risks and benefits of Garnica catheter. We discussed risk of bleeding, infection, pneumothorax, malfunction of the catheter, and subsequent removal. He understands all this and consents to Garnica catheter placement tomorrow. cc: Laura Mcknight MD
--- NOTE | 2019-09-08 14:58 | PROGRESS NOTE ---
DATE: 09/08/2019 SUBJECTIVE: This morning, Mr. Jose Carlos Suarez refers to be doing well. Denies any new complaints. He is still awaiting for a Garnica catheter to be put in. OBJECTIVE: Vital Signs: Blood pressure is 176/99, pulse of 102, respirations 22, temperature 98.1 degrees. The patient is saturating 99% on room air. General: Mr. Suarez is a 39-year-old, gentleman. He is in bed. No distress. HEENT: Mucosa is pink and moist. Anicteric. Acyanotic. Neck: Supple. Chest: Clear to auscultation. No crepitations. No rhonchi. Cardiovascular: Regular rate and rhythm. There are no murmurs, no rubs, no gallops. GI: Abdomen was soft, nontender. There is an old midline surgical scar. Extremities: No pedal edema. There are some chronic changes due to peripheral vascular disease. The right lower extremity is in sterile dressing. AUDIT CLERK: The patient is awake, alert, and oriented. No focal deficit. LABORATORY DATA: WBC is 9.77, hemoglobin is 11.5, platelet count of 448,000. Chemistry is also reviewed. Creatinine of 2.5. Rest of chemistry is unremarkable. CURRENT MEDICATIONS: Include Zosyn and doxycycline. ASSESSMENT: 1. Severe sepsis on presentation secondary to right diabetic foot infection complicated with acute osteomyelitis of the third and the fourth right metatarsal bones. The patient is status post transmetatarsal amputation of the fourth right toe. Today is day 8 postoperatively. He is scheduled to be on intravenous antibiotics for 6 weeks. He is pending a Garnica catheter placement tomorrow. 2. Acute on chronic renal failure. Creatinine is at baseline at 2.5, and it has remained stable for the past 3 days. 3. Uncontrolled diabetes mellitus with presenting A1c of 10.3. The patient is currently stabilized on insulin regimen. 4. Long-standing complication associated with diabetes, including diabetic peripheral neuropathy, diabetic nephropathy, and nephrotic-range proteinuria. Noted. 5. Uncontrolled hypertension. Will continue titrating the patient's medications. 6. Microcytic anemia of chronic disease. Iron studies unremarkable. 7. Severe peripheral vascular disease with TBI on the right of 0.36. The patient is on aspirin and statin. In general, Mr. Suarez is a 39-year-old, gentleman. He is admitted since 08/28/2019. Initially presented because of right foot pain with draining. He was found to have diabetic foot infection with sepsis. He has been fairly stabilized. He underwent transmetatarsal amputation of the fourth digit. He is diagnosed with osteomyelitis. Unfortunately, his cultures did not grow any pathogen. I have discussed this case with Dr. Mcknight, who is the surgeon, and he thinks that Mr. Suarez will need to be treated for osteomyelitis with intravenous antibiotics. There is arrangement to get a Garnica catheter for outpatient therapy. Mr. Suarez is chronic kidney disease stage 4, so we cannot use a peripherally-inserted central catheter line. Once he gets the Garnica catheter, the Social Work and Case Management are also working on getting him his home antibiotics arranged through [facility]. Mr. Suarez will need to be on intravenous Zosyn for 6 weeks. He is so far day 9. His end of therapy will be 10/11/2019. I have also discussed his antimicrobial therapy with Ms. Nam, the Infectious Disease Nurse Practitioner, who will be following him up in the office. I think once Mr. Suarez gets his Garnica catheter and his antibiotics are arranged, he can potentially be discharged tomorrow or the day after. cc: Dieudonne Yañez MD
[2019-09-08] MEDS: LIPITOR PO SCH (20:52)
[2019-09-08] MEDS: LANTUS INSULIN SUBQ SCH (20:56)
[2019-09-09] MEDS: ZOSYN 2.25 GM in NS 50 ML IV SCH ×7 (05:21→23:25)
[2019-09-09] MEDS: OXY IR PO SCH ×4 (05:22→18:42)
[2019-09-09 07:44] LABS: HEMOGLOBIN 9.8 g/dL (14.0-18.0); MCH 26.2 PG (27-31); MCHC 32.7 g/dL (33-37); MCV 80.2 FL (81-99); MPV 7.8 FL (7.4-10.4); RBC 3.74 XMIL (4.7-6.1); RDW 13.3 % (11.5-14.5); WBC 10.05 X1000 (4.8-10.8)
[2019-09-09 08:03] LABS: ALBUMIN 2.2 g/dL (3.5-5.0); CALCIUM 8.7 mg/dL (8.8-10.2); CREATININE 2.4 mg/dL (0.7-1.2); PHOSPHORUS 3.7 mg/dL (2.7-4.5); POTASSIUM 3.9 mmol/L (3.5-5.1)
[2019-09-09] MEDS: DOXYCYCLINE PO SCH ×2 (09:09→20:50)
[2019-09-09] MEDS: COZAAR PO SCH ×3 (09:09→20:53)
[2019-09-09] MEDS: COREG PO SCH ×2 (09:09→20:50)
[2019-09-09] MEDS: APRESOLINE PO SCH ×2 (09:10→17:04)
[2019-09-09] MEDS: DULCOLAX PR SCH ×2 (09:17→20:51)
[2019-09-09] MEDS: MIRALAX PO SCH ×2 (09:17→20:51)
[2019-09-09] MEDS: HEPARIN SUBQ SCH ×2 (09:17→20:52)
[2019-09-09] MEDS: TYLENOL PO SCH ×2 (09:17→17:05)
[2019-09-09] MEDS: PERIDEX MT SCH ×2 (09:17→20:51)
[2019-09-09] MEDS: HUMALOG SUBQ SCH ×3 (11:15→20:51)
--- NOTE | 2019-09-09 12:18 | PROGRESS NOTE ---
DATE: 09/09/2019 SUBJECTIVE: Mr. Suarez was admitted on 08/28/2019. He is a 39-year-old black male with a history of type 1 diabetes mellitus. He has asthma, tobacco abuse, and substance abuse in the past. He came in with excruciating pain in the right foot along with drainage. In the emergency room, he was found to have sepsis, tachycardia, and leukocytosis. He was resuscitated with IV fluids and IV antibiotics. Hospital team was consulted, and admitted to the hospital. ADMISSION DIAGNOSES: 1. Severe sepsis due to right foot acute osteomyelitis affecting distal 3rd and 4th metatarsals. 2. Acute kidney injury, possible chronic kidney disease stage 3 in the setting of sepsis. 3. Uncontrolled insulin, diabetes mellitus type 1. 4. Essential hypertension. 5. Active tobacco use. 6. Microcytic anemia, likely anemia of chronic disease. 7. Anemia of chronic inflammation. General Surgery was consulted for diabetic foot infection, early ischemic change in his right 4th toe and osteomyelitis changes in the distal 3rd and 4th metatarsals. The callus was unroofed, and did not seem to have an abscess there. Early necrotic changes in the toes and discoloration. The patient was put on antibiotics. Foot x-ray on 08/28 showed no complication. There were no radiodense foreign bodies. He had a lower extremity MRI that showed osteomyelitis in the distal 3rd and 4th metatarsals, mainly metatarsal heads. He had arterial studies done on 08/28, and appears to be normal flow in the ankle level bilaterally, but there is likely small vessel disease in the right foot and adequacy for healing the toe amputation at that point was questionable. He had a renal ultrasound done on 08/31 with negative exam. No sign of obstruction. The kidneys and urinary bladder were normal. He was followed by Dr. [place] Mcknight, general surgery for diabetic toe infection. Wound seems to be clear. He seemed to have normal ankle branchial brachial indices, but depressed toe brachial indices bilaterally which suggests he does have quite severe small-vessel disease. The plan was to continue local wound care, and I think trying to get an IV access for him. PHYSICAL EXAMINATION: On exam today, he was sleeping, and easy to arouse and comfortable. No complaints. He says his foot feels better.Vital Signs: Temperature 97.8 degrees, pulse 95, respirations 20, and blood pressure 158/94. Eyes: Pupils are equal and round. No distended neck veins. Lungs: Clear in all lung wells. Cardiovascular: Regular rhythm and rate without murmur or S3. LABORATORY: Blood sugars 185, 151, 142 and 116. ASSESSMENT AND PLAN: 1. Severe sepsis presentation secondary to right diabetic foot infection complicated with acute osteomyelitis of the third and 4th right metatarsal bones. The patient is status post transmetatarsal amputation of the 4th right toe, and today is the 9th postop day scheduled for intravenous antibiotics for 6 weeks pending Garnica catheter. Hopefully, we can arrange this for going home. 2. Acute on chronic renal failure. Baseline creatinine 2.5. He has remained stable for the last several days. 3. Uncontrolled diabetes mellitus type 1. A1c was 10.3, and currently doing much better on blood sugar control. 4. Longstanding complication associated with diabetes including diabetic peripheral neuropathy, diabetic nephropathy, and nephrotic range proteinuria. 5. Uncontrolled hypertension. Better control at the present. 6. Macrocytic anemia of chronic disease. Iron studies unremarkable. 7. Severe peripheral vascular disease with a TBI on the right of 0.36. Patient is on aspirin and statin. PLAN: The plan is for Garnica placement. Review of current orders. He is on Lipitor 40 mg at bedtime, Lantus insulin 10 units at bedtime, Coreg 12.5 mg b.i.d., doxycycline 100 mg b.i.d. Apresoline 75 mg q.8 hours, Cozaar 50 mg b.i.d., Oxy IR 5 mg p.o. q.6 hours, MiraLAX 17 g p.o. b.i.d. and Zosyn 2.25 g IV q.6 hours. Looking at his occult stool on 08/30 was negative for blood. Blood cultures from 08/27 are no growth, and no growth from his right foot culture on 08/29/2019. cc: Semaj Friedman MD
[2019-09-09] MEDS ORDERED: XYLOCAINE-MPF 2% ONE (14:00)
[2019-09-09] MEDS ORDERED: DIPRIVAN 1% ONE (14:00)
[2019-09-09] MEDS ORDERED: NS 250 ML ONE (14:06)
[2019-09-09] MEDS ORDERED: XYLOCAINE 1%/EPI 1:100,000 ONE (14:06)
[2019-09-09] MEDS ORDERED: EPHEDRINE ONE (14:31)
--- NOTE | 2019-09-09 15:15 | OPERATIVE NOTE ---
PROCEDURE DATE: 09/09/2019 PREOP DIAGNOSIS: Osteomyelitis of right foot. POSTOPERATIVE DIAGNOSES: Osteomyelitis of right foot. PROCEDURE PERFORMED: 1. Ultrasound-guided right internal jugular vein 9-Moroccan Garnica double-lumen catheter placement. 2. Fluoroscopy less 1 hour. ESTIMATED BLOOD LOSS: 10 mL. SPECIMENS: None. ANESTHESIA: General. INDICATION: 39-year-old gentleman who has osteomyelitis right foot. He had a toe amputation needs long-term antibiotics. OPERATIVE FINDINGS: 1. Ultrasound right neck showed a compressible internal jugular vein with no evidence of thrombus. 2. Final fluoroscopic image showed good position the catheter at the superior vena cava-atrial junction with no kinking of the catheter, no pneumothorax. OPERATIVE NOTE: Risks, benefits, alternatives were discussed patient, he consented procedure. He was seen preoperatively. The surgical site was confirmed. His right neck and chest prepped with Betadine and draped in usual fashion. After time-out, focused ultrasound the right neck was performed. He was in Trendelenburg and the vein was accessed on the first pass. Dark nonpulsatile venous blood was noted on return. The wire threaded easily, was confirmed with fluoroscopy in the right side of the heart. A skin valerie was made 2 fingerbreadths below the level of the clavicle and a 89-Moroccan catheter was tunneled from incision and chest incision made large in the neck. A dilator peel-away introducer sheath was advanced. The catheter was measured with fluoroscopy and was trimmed and was advanced and the sheath was peeled away. It was in good position. Both ports withdrew blood and flushed without resistance it was secured with nylon suture. Both incisions were closed with 4-0 Monocryl. Dermabond was applied the neck and a gauze Tegaderm was applied at the chest. Counts were correct. He was woken, transferred recovery. There was no family available. cc: Laura Mcknight MD
[2019-09-09] MEDS: LABETALOL (DOSE) IV ONE ×2 (15:22→15:37)
[2019-09-09] MEDS: APRESOLINE ONE ×2 (15:47→16:05)
[2019-09-09] MEDS: LIPITOR PO SCH (20:50)
[2019-09-09] MEDS: LANTUS INSULIN SUBQ SCH (23:26)
[2019-09-10] MEDS: TYLENOL PO SCH ×2 (00:39→10:03)
[2019-09-10] MEDS: APRESOLINE PO SCH ×2 (00:39→10:03)
[2019-09-10] MEDS: OXY IR PO SCH ×2 (00:42→08:08)
[2019-09-10] MEDS: ZOSYN 2.25 GM in NS 50 ML IV SCH ×3 (05:00→10:19)
[2019-09-10] MEDS: HUMALOG SUBQ SCH ×2 (07:40→11:45)
[2019-09-10 07:56] VITALS: BP 144/88
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
[2019-09-10] MEDS: COREG PO SCH (10:02)
[2019-09-10] MEDS: DOXYCYCLINE PO SCH (10:02)
[2019-09-10] MEDS: COZAAR PO SCH (10:03)
[2019-09-10] MEDS: PERIDEX MT SCH (10:03)
[2019-09-10] MEDS: HEPARIN SUBQ SCH (10:03)
[2019-09-10] MEDS: MIRALAX PO SCH (10:04)
[2019-09-10] MEDS: DULCOLAX PR SCH (10:04)
== END 2019-09-10 12:09 | disposition home health service (06) | DRG 854 ==
LOC: ED 07:00 → EDIPHOLD 12:33 → SUATTDRO 12:33 → 4N 17:44 → UNDODISIN 09-10 07:57
PROVIDERS: ATTEND Emergency Medicine